=== PATIENT | male | born 1975 ===

== ENCOUNTER 2017-08-25 18:22 | Observation (INO) ==
[2017-08-25] MEDS ORDERED: MAGNESIUM OXIDE 400 MG TABLET PO ONE (22:13)
[2017-08-25] MEDS ORDERED: DEXTROSE 50% 25 GM/50 ML VIAL IV PRN (22:13)
[2017-08-25] MEDS ORDERED: GLUCAGON 1 MG VIAL IM PRN (22:13)
[2017-08-25] MEDS ORDERED: ONDANSETRON 4 MG/2 ML VIAL IV PRN (22:13)
[2017-08-25 22:28] LABS: CKMB % 1.4 %
[2017-08-25 22:29] LABS: Troponin I Only 0.072 NG/ML (0.00-0.045)
[2017-08-25] MEDS: GABAPENTIN 400 MG CAPSULE PO SCH (22:50)
[2017-08-25] MEDS: hydrALAZINE 25 MG TABLET PO SCH (22:50)
[2017-08-25] MEDS: DOCUSATE SODIUM 100 MG CAPSULE PO SCH (22:50)
[2017-08-25] MEDS: ISOSORBIDE DINITRATE 20 MG TABLET PO SCH (22:51)
[2017-08-25] MEDS: ATORVASTATIN 80 MG TABLET PO SCH (22:51)
[2017-08-25 22:52] LABS: Basophils % 0.5 % (0.0-0.8); Eosinophils # 0.2 10*3/uL (0.0-0.87); Eosinophils % 3.8 % (0.00-10.9); Hematocrit 31.3 VOL% (42.0-52.0); Hemoglobin 10.1 GM/DL (14.0-18.0); Immature Granulocytes % 0.3 %; Immature Granulocytes Absolute 0.02 #; Lymphocytes # 1.7 10*3/uL (1.4-4.0); Mean Corpuscular HGB Conc 32.3 GM/DL (32-36); Mean Corpuscular Hemoglobin 27 PG (27-34); Mean Corpuscular Volume 83.5 FL (87-102); Mean Platelet Volume 10.5 FL (9.6-12.0); Monocytes # 0.6 10*3/uL (0.11-0.8); Neutrophils # 3.2 10*3/uL (1.4-7.4); Neutrophils % 55.4 % (38.7-73.9); Platelet Count 225 T/CUMM (130-400); Red Blood Count 3.75 MC/CUMM (3.8-5.5); Red Cell Distribution Width 13.7 % (9.3-17.3); White Blood Count 5.7 T/CUMM (4-12)
[2017-08-25] MEDS: CARVEDILOL 6.25 MG TABLET PO SCH (22:54)
[2017-08-25] MEDS: INSULIN LISPRO 100 UNIT/ML SUBCUT SCH (22:55)
[2017-08-25 23:17] LABS: Magnesium 1.6 MG/DL (1.8-2.4); Risk Ratio 1.87
[2017-08-25 23:19] LABS: Alanine Aminotransferase 24 U/L (16-61); Albumin 2.3 G/DL (3.4-5.0); Alkaline Phosphatase 103 U/L (45-117); Aspartate Amino Transferase 28 U/L (0-37); Bilirubin,Total < 0.39 MG/DL (0.2-1.0); Blood Urea Nitrogen 43 MG/DL (7-18); Glucose 127 MG/DL (74-106); Osmolality,Calculated 287.7 MOS/KG (273-304); Potassium 4.5 MMOL/L (3.5-5.1); Sodium 138 MMOL/L (136-145); Total Protein 4.8 G/DL (6.4-8.3)
[2017-08-26] MEDS: CARVEDILOL 6.25 MG TABLET PO SCH ×2 (08:57→16:06)
[2017-08-26] MEDS: INSULIN LISPRO 100 UNIT/ML SUBCUT SCH ×4 (08:57→20:52)
[2017-08-26] MEDS: CLOPIDOGREL 75 MG TABLET PO SCH (08:57)
[2017-08-26] MEDS: PANTOPRAZOLE 40 MG TABLET PO SCH (08:57)
[2017-08-26] MEDS: DOCUSATE SODIUM 100 MG CAPSULE PO SCH ×2 (08:57→20:52)
[2017-08-26] MEDS: GABAPENTIN 400 MG CAPSULE PO SCH (08:57)
[2017-08-26] MEDS: ISOSORBIDE DINITRATE 20 MG TABLET PO SCH ×3 (08:57→20:55)
[2017-08-26] MEDS: hydrALAZINE 25 MG TABLET PO SCH ×3 (08:57→20:51)
[2017-08-26] MEDS: ENOXAPARIN 30 MG/0.3 ML SYRINGE SUBCUT SCH (08:58)
[2017-08-26] MEDS: MORPHINE 2 MG/1 ML SYRINGE IV PRN ×4 (08:58→20:55)
[2017-08-26] MEDS: ASPIRIN EC 81 MG TABLET PO SCH (08:58)
[2017-08-26 16:06] LABS: Protein/Creatinine Ratio,Urine 5.1 RATIO
[2017-08-26 18:14] LABS: CKMB % 1.7 %
[2017-08-26 18:15] LABS: Troponin I Only 0.062 NG/ML (0.00-0.045)
[2017-08-26] MEDS: ATORVASTATIN 80 MG TABLET PO SCH (20:51)
[2017-08-26] MEDS: GABAPENTIN 600 MG TABLET PO SCH (20:55)
[2017-08-27] MEDS: MORPHINE 2 MG/1 ML SYRINGE IV PRN ×4 (01:31→20:33)
[2017-08-27 06:16] LABS: Basophils % 0.5 % (0.0-0.8); Eosinophils # 0.2 10*3/uL (0.0-0.87); Eosinophils % 1.9 % (0.00-10.9); Hematocrit 32.4 VOL% (42.0-52.0); Hemoglobin 10.2 GM/DL (14.0-18.0); Immature Granulocytes % 0.4 %; Immature Granulocytes Absolute 0.03 #; Lymphocytes # 1.2 10*3/uL (1.4-4.0); Lymphocytes % 14.8 % (21.2-54.2); Mean Corpuscular HGB Conc 31.5 GM/DL (32-36); Mean Corpuscular Hemoglobin 27 PG (27-34); Mean Corpuscular Volume 84.2 FL (87-102); Monocytes # 0.5 10*3/uL (0.11-0.8); Monocytes % 5.4 % (1.7-12.7); Neutrophils # 6.5 10*3/uL (1.4-7.4); Platelet Count 245 T/CUMM (130-400); Red Blood Count 3.85 MC/CUMM (3.8-5.5); Red Cell Distribution Width 13.5 % (9.3-17.3); White Blood Count 8.4 T/CUMM (4-12)
[2017-08-27 06:46] LABS: CKMB % 2.1 %; Osmolality,Calculated 291.7 MOS/KG (273-304); Potassium 4.6 MMOL/L (3.5-5.1)
[2017-08-27 06:50] LABS: Troponin I Only 0.084 NG/ML (0.00-0.045)
[2017-08-27] MEDS: INSULIN LISPRO 100 UNIT/ML SUBCUT SCH ×4 (08:56→21:36)
[2017-08-27] MEDS: hydrALAZINE 25 MG TABLET PO SCH ×2 (08:57→15:06)
[2017-08-27] MEDS: ISOSORBIDE DINITRATE 20 MG TABLET PO SCH ×3 (08:57→20:33)
[2017-08-27] MEDS: PANTOPRAZOLE 40 MG TABLET PO SCH (08:57)
[2017-08-27] MEDS: DOCUSATE SODIUM 100 MG CAPSULE PO SCH ×2 (08:57→20:33)
[2017-08-27] MEDS: ENOXAPARIN 30 MG/0.3 ML SYRINGE SUBCUT SCH (08:57)
[2017-08-27] MEDS: ASPIRIN EC 81 MG TABLET PO SCH (08:57)
[2017-08-27] MEDS: CARVEDILOL 6.25 MG TABLET PO SCH ×2 (08:57→17:23)
[2017-08-27] MEDS: CLOPIDOGREL 75 MG TABLET PO SCH (08:57)
[2017-08-27] MEDS ORDERED: FUROSEMIDE 20 MG/2 ML VIAL IV SCH (15:00)
[2017-08-27] MEDS ORDERED: MAGNESIUM SULF RIDER 2 GM in PREMIX 1 EACH IV ONE (19:44)
[2017-08-27] MEDS: ATORVASTATIN 80 MG TABLET PO SCH (20:32)
[2017-08-27] MEDS: GABAPENTIN 600 MG TABLET PO SCH (20:32)
[2017-08-27] MEDS: FUROSEMIDE 20 MG/2 ML VIAL IV SCH (20:32)
[2017-08-28] MEDS: CARVEDILOL 6.25 MG TABLET PO SCH ×2 (08:23→16:22)
[2017-08-28] MEDS: ISOSORBIDE DINITRATE 20 MG TABLET PO SCH ×3 (08:23→20:57)
[2017-08-28] MEDS: ENOXAPARIN 30 MG/0.3 ML SYRINGE SUBCUT SCH (08:23)
[2017-08-28] MEDS: ASPIRIN EC 81 MG TABLET PO SCH (08:23)
[2017-08-28] MEDS: INSULIN LISPRO 100 UNIT/ML SUBCUT SCH ×4 (08:23→20:23)
[2017-08-28] MEDS: DOCUSATE SODIUM 100 MG CAPSULE PO SCH ×2 (08:23→20:57)
[2017-08-28] MEDS: PANTOPRAZOLE 40 MG TABLET PO SCH (08:23)
[2017-08-28] MEDS: MAGNESIUM CHLORIDE 64 MG TABLET PO SCH ×2 (08:23→20:57)
[2017-08-28] MEDS: FUROSEMIDE 20 MG/2 ML VIAL IV SCH (08:23)
[2017-08-28] MEDS: CLOPIDOGREL 75 MG TABLET PO SCH (08:24)
[2017-08-28] MEDS: MORPHINE 2 MG/1 ML SYRINGE IV PRN ×2 (09:46→20:59)
[2017-08-28 14:02] LABS: % Iron Saturation 10.7 % (18-50); Ferritin 6.8 ng/ml (26-388)
[2017-08-28] MEDS: FUROSEMIDE 80 MG TABLET PO SCH (15:02)
[2017-08-28] MEDS: GABAPENTIN 600 MG TABLET PO SCH (20:57)
[2017-08-28] MEDS: ATORVASTATIN 80 MG TABLET PO SCH (20:57)
[2017-08-29 06:33] LABS: Calcium 7.6 MG/DL (8.5-10.1); Osmolality,Calculated 291.7 MOS/KG (273-304); Potassium 4.3 MMOL/L (3.5-5.1)
[2017-08-29] MEDS: INSULIN LISPRO 100 UNIT/ML SUBCUT SCH ×4 (08:16→21:14)
[2017-08-29] MEDS: ISOSORBIDE DINITRATE 20 MG TABLET PO SCH ×3 (08:20→20:58)
[2017-08-29] MEDS: MAGNESIUM CHLORIDE 64 MG TABLET PO SCH ×2 (08:20→20:58)
[2017-08-29] MEDS: FUROSEMIDE 80 MG TABLET PO SCH ×2 (08:21→17:11)
[2017-08-29] MEDS: CLOPIDOGREL 75 MG TABLET PO SCH (08:21)
[2017-08-29] MEDS: CARVEDILOL 6.25 MG TABLET PO SCH ×2 (08:22→17:11)
[2017-08-29] MEDS: PANTOPRAZOLE 40 MG TABLET PO SCH (08:22)
[2017-08-29] MEDS: ASPIRIN EC 81 MG TABLET PO SCH (08:23)
[2017-08-29] MEDS: DOCUSATE SODIUM 100 MG CAPSULE PO SCH ×2 (08:24→20:58)
[2017-08-29] MEDS: ENOXAPARIN 30 MG/0.3 ML SYRINGE SUBCUT SCH (08:25)
[2017-08-29] MEDS: ACETAMINOPHEN 325 MG TABLET PO PRN (10:05)
[2017-08-29] MEDS: IRON SUCROSE 200 MG in SODIUM CHLORIDE 0.9% 100 ML IV SCH (10:06)
[2017-08-29] MEDS: MORPHINE 2 MG/1 ML SYRINGE IV PRN ×2 (12:55→21:06)
[2017-08-29] MEDS: ATORVASTATIN 80 MG TABLET PO SCH (20:58)
[2017-08-29] MEDS: GABAPENTIN 600 MG TABLET PO SCH (20:58)
[2017-08-30] MEDS: INSULIN LISPRO 100 UNIT/ML SUBCUT SCH ×2 (08:40→12:23)
[2017-08-30] MEDS: CLOPIDOGREL 75 MG TABLET PO SCH (08:41)
[2017-08-30] MEDS: MAGNESIUM CHLORIDE 64 MG TABLET PO SCH (08:41)
[2017-08-30] MEDS: ENOXAPARIN 30 MG/0.3 ML SYRINGE SUBCUT SCH (08:41)
[2017-08-30] MEDS: ISOSORBIDE DINITRATE 20 MG TABLET PO SCH ×2 (08:41→17:37)
[2017-08-30] MEDS: CARVEDILOL 6.25 MG TABLET PO SCH ×2 (08:42→17:38)
[2017-08-30] MEDS: ASPIRIN EC 81 MG TABLET PO SCH (08:42)
[2017-08-30] MEDS: DOCUSATE SODIUM 100 MG CAPSULE PO SCH (08:42)
[2017-08-30] MEDS: IRON SUCROSE 200 MG in SODIUM CHLORIDE 0.9% 100 ML IV SCH (08:42)
[2017-08-30] MEDS: FUROSEMIDE 80 MG TABLET PO SCH ×2 (08:42→17:37)
[2017-08-30] MEDS: PANTOPRAZOLE 40 MG TABLET PO SCH (08:42)
[2017-08-30] MEDS: MORPHINE 2 MG/1 ML SYRINGE IV PRN (12:23)
[2017-08-30 16:26] VITALS: BP 156/94
[2017-08-30] MEDS: ACETAMINOPHEN 325 MG TABLET PO PRN (17:44)
== END 2017-08-30 19:25 | disposition home or self-care (01) ==
LOC: EDBD → EDUNIT# → N.ED 18:22 → N.EDINP 18:22 → SUATTDRO 19:51 → N.5E 20:19
PROVIDERS: ADMIT Internal Medicine; ATTEND Hospitalist

== ENCOUNTER 2017-09-05 20:01 | Inpatient (IN) ==
[2017-09-05] MEDS ORDERED: GLUCAGON 1 MG VIAL IM PRN (22:40)
[2017-09-05] MEDS ORDERED: ACETAMINOPHEN 325 MG TABLET PO PRN (22:40)
[2017-09-05] MEDS ORDERED: ONDANSETRON 4 MG/2 ML VIAL IV PRN (22:40)
[2017-09-05] MEDS ORDERED: MAGNESIUM SULF RIDER 4 GM in PREMIX 1 EACH IV PRN (22:40)
[2017-09-05] MEDS ORDERED: DEXTROSE 50% 25 GM/50 ML VIAL IV PRN (22:40)
[2017-09-05] MEDS ORDERED: MAGNESIUM SULF RIDER 2 GM in PREMIX 1 EACH IV PRN (22:40)
[2017-09-06] MEDS: INSULIN REGULAR 100 UNIT/ML SUBCUT SCH ×5 (01:04→20:22)
[2017-09-06 07:37] LABS: Basophils # 0.1 10*3/uL (0.0-0.2); Basophils % 0.9 % (0.0-0.8); Eosinophils # 0.4 10*3/uL (0.0-0.87); Eosinophils % 5.2 % (0.00-10.9); Hemoglobin 9.5 GM/DL (14.0-18.0); Immature Granulocytes % 0.3 %; Immature Granulocytes Absolute 0.02 #; Lymphocytes # 1.6 10*3/uL (1.4-4.0); Mean Corpuscular HGB Conc 30.6 GM/DL (32-36); Mean Corpuscular Hemoglobin 26 PG (27-34); Mean Corpuscular Volume 85.4 FL (87-102); Monocytes # 0.7 10*3/uL (0.11-0.8); Monocytes % 9.9 % (1.7-12.7); Neutrophils # 4.7 10*3/uL (1.4-7.4); Neutrophils % 62.7 % (38.7-73.9); Platelet Count 232 T/CUMM (130-400); Red Blood Count 3.63 MC/CUMM (3.8-5.5); Red Cell Distribution Width 14.1 % (9.3-17.3); White Blood Count 7.5 T/CUMM (4-12)
[2017-09-06 08:10] LABS: Calcium 7.6 MG/DL (8.5-10.1); Magnesium 1.3 MG/DL (1.8-2.4); Osmolality,Calculated 302.7 MOS/KG (273-304)
[2017-09-06] MEDS ORDERED: PNEUMOCOCCAL VACCINE (23 VALENT) 0.5 ML VIAL IM ONE (09:00)
[2017-09-06] MEDS: ISOSORBIDE DINITRATE 20 MG TABLET PO SCH ×3 (09:07→20:21)
[2017-09-06] MEDS: FUROSEMIDE 40 MG/4 ML VIAL IV SCH ×2 (09:07→15:25)
[2017-09-06] MEDS: CLOPIDOGREL 75 MG TABLET PO SCH (09:07)
[2017-09-06] MEDS: PANTOPRAZOLE 40 MG TABLET PO SCH (09:07)
[2017-09-06] MEDS: ASPIRIN EC 81 MG TABLET PO SCH (09:07)
[2017-09-06] MEDS: ENOXAPARIN 30 MG/0.3 ML SYRINGE SUBCUT SCH (09:12)
[2017-09-06] MEDS: traMADol 50 MG TABLET PO PRN (09:51)
[2017-09-06] MEDS: ATORVASTATIN 40 MG TABLET PO SCH (20:21)
[2017-09-06] MEDS: INSULIN GLARGINE 100 UNIT/ML SUBCUT SCH (20:21)
[2017-09-07] MEDS: traMADol 50 MG TABLET PO PRN ×2 (04:58→17:15)
[2017-09-07 06:56] LABS: Basophils # 0.1 10*3/uL (0.0-0.2); Basophils % 0.8 % (0.0-0.8); Eosinophils # 0.4 10*3/uL (0.0-0.87); Eosinophils % 5.4 % (0.00-10.9); Hemoglobin 9.8 GM/DL (14.0-18.0); Immature Granulocytes % 0.3 %; Immature Granulocytes Absolute 0.02 #; Lymphocytes # 1.5 10*3/uL (1.4-4.0); Lymphocytes % 20.7 % (21.2-54.2); Mean Corpuscular HGB Conc 31.6 GM/DL (32-36); Mean Corpuscular Hemoglobin 26 PG (27-34); Mean Corpuscular Volume 83.6 FL (87-102); Mean Platelet Volume 12.3 FL (9.6-12.0); Monocytes # 0.8 10*3/uL (0.11-0.8); Monocytes % 10.5 % (1.7-12.7); Neutrophils # 4.5 10*3/uL (1.4-7.4); Neutrophils % 62.3 % (38.7-73.9); Platelet Count 258 T/CUMM (130-400); Red Blood Count 3.71 MC/CUMM (3.8-5.5); White Blood Count 7.2 T/CUMM (4-12)
[2017-09-07 07:29] LABS: Calcium 7.8 MG/DL (8.5-10.1); Magnesium 1.5 MG/DL (1.8-2.4); Osmolality,Calculated 297.1 MOS/KG (273-304)
[2017-09-07] MEDS: ASPIRIN EC 81 MG TABLET PO SCH (09:38)
[2017-09-07] MEDS: ENOXAPARIN 30 MG/0.3 ML SYRINGE SUBCUT SCH (09:38)
[2017-09-07] MEDS: CLOPIDOGREL 75 MG TABLET PO SCH (09:38)
[2017-09-07] MEDS: ISOSORBIDE DINITRATE 20 MG TABLET PO SCH ×3 (09:38→21:08)
[2017-09-07] MEDS: FUROSEMIDE 40 MG/4 ML VIAL IV SCH ×2 (09:38→15:43)
[2017-09-07] MEDS: PANTOPRAZOLE 40 MG TABLET PO SCH (09:38)
[2017-09-07] MEDS: INSULIN REGULAR 100 UNIT/ML SUBCUT SCH ×4 (09:47→21:09)
[2017-09-07] MEDS: ATORVASTATIN 40 MG TABLET PO SCH (21:08)
[2017-09-07] MEDS: INSULIN GLARGINE 100 UNIT/ML SUBCUT SCH (21:09)
[2017-09-08 07:14] LABS: Basophils # 0.1 10*3/uL (0.0-0.2); Basophils % 0.8 % (0.0-0.8); Eosinophils # 0.2 10*3/uL (0.0-0.87); Eosinophils % 3.3 % (0.00-10.9); Hematocrit 31.6 VOL% (42.0-52.0); Hemoglobin 9.8 GM/DL (14.0-18.0); Immature Granulocytes % 0.3 %; Immature Granulocytes Absolute 0.02 #; Mean Corpuscular Hemoglobin 26 PG (27-34); Mean Corpuscular Volume 84.7 FL (87-102); Mean Platelet Volume 11.8 FL (9.6-12.0); Monocytes # 0.6 10*3/uL (0.11-0.8); Monocytes % 9.1 % (1.7-12.7); Neutrophils # 4.3 10*3/uL (1.4-7.4); Neutrophils % 69.5 % (38.7-73.9); Platelet Count 254 T/CUMM (130-400); Red Blood Count 3.73 MC/CUMM (3.8-5.5); Red Cell Distribution Width 13.8 % (9.3-17.3); White Blood Count 6.1 T/CUMM (4-12)
[2017-09-08 07:44] LABS: Calcium 8.3 MG/DL (8.5-10.1); Magnesium 1.6 MG/DL (1.8-2.4); Potassium 4.6 MMOL/L (3.5-5.1)
[2017-09-08] MEDS: PANTOPRAZOLE 40 MG TABLET PO SCH (10:03)
[2017-09-08] MEDS: CLOPIDOGREL 75 MG TABLET PO SCH (10:03)
[2017-09-08] MEDS: ENOXAPARIN 30 MG/0.3 ML SYRINGE SUBCUT SCH (10:03)
[2017-09-08] MEDS: ASPIRIN EC 81 MG TABLET PO SCH (10:03)
[2017-09-08] MEDS: ISOSORBIDE DINITRATE 20 MG TABLET PO SCH ×3 (10:03→21:13)
[2017-09-08] MEDS: FUROSEMIDE 40 MG/4 ML VIAL IV SCH (10:04)
[2017-09-08] MEDS: INSULIN REGULAR 100 UNIT/ML SUBCUT SCH ×4 (10:04→21:54)
[2017-09-08] MEDS: FUROSEMIDE 80 MG TABLET PO SCH (15:53)
[2017-09-08] MEDS: ATORVASTATIN 40 MG TABLET PO SCH (21:13)
[2017-09-08] MEDS: INSULIN GLARGINE 100 UNIT/ML SUBCUT SCH (21:54)
[2017-09-09] MEDS: traMADol 50 MG TABLET PO PRN (03:40)
[2017-09-09] MEDS: FUROSEMIDE 80 MG TABLET PO SCH ×2 (09:28→15:48)
[2017-09-09] MEDS: ISOSORBIDE DINITRATE 20 MG TABLET PO SCH ×2 (09:28→14:58)
[2017-09-09] MEDS: PANTOPRAZOLE 40 MG TABLET PO SCH (09:28)
[2017-09-09] MEDS: ASPIRIN EC 81 MG TABLET PO SCH (09:28)
[2017-09-09] MEDS: CLOPIDOGREL 75 MG TABLET PO SCH (09:29)
[2017-09-09] MEDS: ENOXAPARIN 30 MG/0.3 ML SYRINGE SUBCUT SCH (09:29)
[2017-09-09] MEDS: INSULIN REGULAR 100 UNIT/ML SUBCUT SCH ×3 (10:15→15:47)
[2017-09-09 15:31] VITALS: BP 163/103
== END 2017-09-09 17:51 | disposition home or self-care (01) | DRG 291 ==
LOC: N.5E 21:47 → SUATTDRO 21:47
PROVIDERS: ADMIT Internal Medicine; ATTEND Internal Medicine

== ENCOUNTER 2018-02-08 17:26 | Inpatient (IN) ==
[2018-02-08] MEDS ORDERED: DEXTROSE 50% 25 GM/50 ML VIAL IV PRN (18:04)
[2018-02-08] MEDS ORDERED: ONDANSETRON 4 MG/2 ML VIAL IV PRN (18:04)
[2018-02-08] MEDS ORDERED: GLUCAGON 1 MG VIAL IM PRN (18:04)
[2018-02-08 18:22] LABS: Troponin I Only 0.088 NG/ML (0.00-0.045)
[2018-02-08 19:49] LABS: Calcium 6.9 MG/DL (8.5-10.1); Osmolality,Calculated 274.1 MOS/KG (273-304); Potassium 2.7 MMOL/L (3.5-5.1)
[2018-02-08] MEDS: INSULIN REGULAR 100 UNIT/ML SUBCUT SCH (20:59)
[2018-02-09] MEDS: ACETAMINOPHEN 325 MG TABLET PO PRN (01:51)
[2018-02-09] MEDS: ZALEPLON 5 MG CAPSULE PO PRN (01:53)
[2018-02-09 02:09] LABS: Basophils % 0.5 % (0.0-0.8); Eosinophils # 0.1 10*3/uL (0.0-0.87); Eosinophils % 1.3 % (0.00-10.9); Hematocrit 28.5 VOL% (42.0-52.0); Hemoglobin 10.4 GM/DL (14.0-18.0); Immature Granulocytes % 0.2 %; Immature Granulocytes Absolute 0.01 #; Lymphocytes # 1.8 10*3/uL (1.4-4.0); Lymphocytes % 29.7 % (21.2-54.2); Mean Corpuscular HGB Conc 36.5 GM/DL (32-36); Mean Corpuscular Hemoglobin 29 PG (27-34); Mean Corpuscular Volume 80.3 FL (87-102); Mean Platelet Volume 10.8 FL (9.6-12.0); Monocytes # 0.7 10*3/uL (0.11-0.8); Monocytes % 12.2 % (1.7-12.7); Neutrophils # 3.4 10*3/uL (1.4-7.4); Neutrophils % 56.1 % (38.7-73.9); Platelet Count 227 T/CUMM (130-400); Red Blood Count 3.55 MC/CUMM (3.8-5.5); Red Cell Distribution Width 14.4 % (9.3-17.3)
[2018-02-09 02:37] LABS: Alanine Aminotransferase 17 U/L (16-61); Albumin 2.1 G/DL (3.4-5.0); Alkaline Phosphatase 118 U/L (45-117); Aspartate Amino Transferase 24 U/L (0-37); Bilirubin,Total < 0.39 MG/DL (0.2-1.0); Blood Urea Nitrogen 48 MG/DL (7-18); Calcium 6.4 MG/DL (8.5-10.1); Glucose 217 MG/DL (74-106); Osmolality,Calculated 277.9 MOS/KG (273-304); Potassium 2.7 MMOL/L (3.5-5.1); Sodium 129 MMOL/L (136-145); Total Protein 4.4 G/DL (6.4-8.3)
[2018-02-09] MEDS ORDERED: MAGNESIUM SULF RIDER 1 GM in PREMIX 1 EACH IV ONE (06:30)
[2018-02-09] MEDS ORDERED: POTASSIUM CHLORIDE 20 MEQ TABLET PO ONE (06:30)
[2018-02-09] MEDS: PANTOPRAZOLE 40 MG TABLET PO SCH (08:52)
[2018-02-09] MEDS: INSULIN REGULAR 100 UNIT/ML SUBCUT SCH ×4 (08:57→22:10)
[2018-02-09] MEDS ORDERED: MAGNESIUM SULF RIDER 4 GM in PREMIX 1 EACH IV PRN (09:36)
[2018-02-09] MEDS ORDERED: MAGNESIUM SULF RIDER 2 GM in PREMIX 1 EACH IV PRN (09:36)
[2018-02-09 10:58] LABS: PT Patient Result 10.1 SECS
[2018-02-09] MEDS ORDERED: PANTOPRAZOLE 40 MG TABLET PO SCH (11:00)
[2018-02-09 11:21] LABS: Hepatitis A Ab IgM Result Negative (Negative); Hepatitis B Core IgM Quant 0.18 Index; Hepatitis B Core IgM Result Negative (Negative); Hepatitis B Surface Ag Quant < 0.10 Index; Hepatitis B Surface Ag Result Negative (Negative); Hepatitis C Virus Ab Quant 0.05 Index; Hepatitis C Virus Ab Result Negative (Negative)
[2018-02-09] MEDS: POTASSIUM CHLORIDE RIDER 10 MEQ in PREMIX 1 EACH IV PRN ×5 (11:31→18:51)
[2018-02-09] MEDS: ASPIRIN EC 81 MG TABLET PO SCH (11:33)
[2018-02-09] MEDS: CARVEDILOL 12.5 MG TABLET PO SCH ×2 (11:33→16:12)
[2018-02-09 15:22] LABS: Basophils # 0.1 10*3/uL (0.0-0.2); Basophils % 0.6 % (0.0-0.8); Eosinophils # 0.1 10*3/uL (0.0-0.87); Eosinophils % 1.1 % (0.00-10.9); Hematocrit 31.3 VOL% (42.0-52.0); Hemoglobin 10.8 GM/DL (14.0-18.0); Immature Granulocytes % 0.4 %; Immature Granulocytes Absolute 0.03 #; Lymphocytes % 23.9 % (21.2-54.2); Mean Corpuscular HGB Conc 34.5 GM/DL (32-36); Mean Corpuscular Hemoglobin 29 PG (27-34); Mean Corpuscular Volume 82.8 FL (87-102); Mean Platelet Volume 10.9 FL (9.6-12.0); Monocytes # 0.9 10*3/uL (0.11-0.8); Monocytes % 10.7 % (1.7-12.7); Neutrophils # 5.2 10*3/uL (1.4-7.4); Neutrophils % 63.3 % (38.7-73.9); Platelet Count 257 T/CUMM (130-400); Red Blood Count 3.78 MC/CUMM (3.8-5.5); Red Cell Distribution Width 14.2 % (9.3-17.3); White Blood Count 8.2 T/CUMM (4-12)
[2018-02-09] MEDS ORDERED: FUROSEMIDE 80 MG TABLET PO SCH (16:00)
[2018-02-09] MEDS: ISOSORBIDE DINITRATE 20 MG TABLET PO SCH ×2 (16:11→22:11)
[2018-02-09] MEDS: ATORVASTATIN 40 MG TABLET PO SCH (22:11)
[2018-02-10 06:30] LABS: Basophils % 0.4 % (0.0-0.8); Eosinophils # 0.1 10*3/uL (0.0-0.87); Eosinophils % 1.3 % (0.00-10.9); Hematocrit 29.5 VOL% (42.0-52.0); Hemoglobin 10.1 GM/DL (14.0-18.0); Immature Granulocytes % 0.4 %; Immature Granulocytes Absolute 0.03 #; Lymphocytes # 1.1 10*3/uL (1.4-4.0); Lymphocytes % 16.6 % (21.2-54.2); Mean Corpuscular HGB Conc 34.2 GM/DL (32-36); Mean Corpuscular Hemoglobin 29 PG (27-34); Mean Corpuscular Volume 83.3 FL (87-102); Mean Platelet Volume 11.1 FL (9.6-12.0); Monocytes # 0.6 10*3/uL (0.11-0.8); Monocytes % 9.3 % (1.7-12.7); Neutrophils # 4.9 10*3/uL (1.4-7.4); Platelet Count 244 T/CUMM (130-400); Red Blood Count 3.54 MC/CUMM (3.8-5.5); Red Cell Distribution Width 14.3 % (9.3-17.3); White Blood Count 6.8 T/CUMM (4-12)
[2018-02-10 07:07] LABS: Calcium 7.2 MG/DL (8.5-10.1); Osmolality,Calculated 280.5 MOS/KG (273-304); Potassium 3.5 MMOL/L (3.5-5.1)
[2018-02-10 07:09] LABS: Albumin 2.2 G/DL (3.4-5.0); Bilirubin,Total 0.7 MG/DL (0.2-1.0); Calcium 7.3 MG/DL (8.5-10.1); Osmolality,Calculated 278.5 MOS/KG (273-304); Potassium 3.2 MMOL/L (3.5-5.1); Total Protein 4.4 G/DL (6.4-8.3)
[2018-02-10] MEDS: CARVEDILOL 12.5 MG TABLET PO SCH ×2 (08:37→16:50)
[2018-02-10] MEDS: ASPIRIN EC 81 MG TABLET PO SCH (08:37)
[2018-02-10] MEDS: ISOSORBIDE DINITRATE 20 MG TABLET PO SCH ×3 (08:37→22:00)
[2018-02-10] MEDS: PANTOPRAZOLE 40 MG TABLET PO SCH (08:37)
[2018-02-10] MEDS: INSULIN REGULAR 100 UNIT/ML SUBCUT SCH ×4 (08:38→21:59)
[2018-02-10] MEDS ORDERED: metOLazone 5 MG TABLET PO SCH (09:00)
[2018-02-10] MEDS: ACETAMINOPHEN 325 MG TABLET PO PRN (18:27)
[2018-02-10] MEDS ORDERED: INSULIN GLARGINE 100 UNIT/ML SUBCUT SCH (21:00)
[2018-02-10] MEDS: ATORVASTATIN 40 MG TABLET PO SCH (22:00)
[2018-02-10] MEDS: ZALEPLON 5 MG CAPSULE PO PRN (22:04)
[2018-02-11 06:12] LABS: Calcium 7.3 MG/DL (8.5-10.1); Osmolality,Calculated 273.5 MOS/KG (273-304); Potassium 3.2 MMOL/L (3.5-5.1)
[2018-02-11] MEDS: CARVEDILOL 12.5 MG TABLET PO SCH (10:25)
[2018-02-11] MEDS: ASPIRIN EC 81 MG TABLET PO SCH (10:25)
[2018-02-11] MEDS: INSULIN REGULAR 100 UNIT/ML SUBCUT SCH ×2 (10:25→12:25)
[2018-02-11] MEDS: PANTOPRAZOLE 40 MG TABLET PO SCH (10:26)
[2018-02-11] MEDS: ISOSORBIDE DINITRATE 20 MG TABLET PO SCH (10:26)
[2018-02-11 11:35] VITALS: BP 132/68
== END 2018-02-11 13:45 | disposition home or self-care (01) | DRG 194 ==
LOC: N.EDINP 17:26 → N.ED 17:26 → N.2E 19:23
PROVIDERS: ADMIT Internal Medicine; ATTEND Internal Medicine

== ENCOUNTER 2018-04-19 19:45 | Inpatient (IN) ==
[2018-04-19] MEDS ORDERED: GLUCAGON 1 MG VIAL IM PRN (22:00)
[2018-04-19] MEDS ORDERED: ACETAMINOPHEN 325 MG TABLET PO PRN (22:00)
[2018-04-19] MEDS ORDERED: DEXTROSE 50% 25 GM/50 ML VIAL IV PRN (22:00)
[2018-04-19] MEDS ORDERED: ONDANSETRON 4 MG/2 ML VIAL IV PRN (22:00)
[2018-04-19] MEDS ORDERED: BUTALBITAL/ACETAMIN/CAFFEINE 50-325-40 MG TABLET PO PRN (22:50)
[2018-04-19 22:55] LABS: Basophils # 0.1 10*3/uL (0.0-0.2); Eosinophils # 0.3 10*3/uL (0.0-0.87); Eosinophils % 4.3 % (0.00-10.9); Hematocrit 32.4 VOL% (42.0-52.0); Hemoglobin 11.3 GM/DL (14.0-18.0); Immature Granulocytes % 0.3 %; Immature Granulocytes Absolute 0.02 #; Lymphocytes # 1.9 10*3/uL (1.4-4.0); Lymphocytes % 32.1 % (21.2-54.2); Mean Corpuscular HGB Conc 34.9 GM/DL (32-36); Mean Corpuscular Hemoglobin 30 PG (27-34); Mean Corpuscular Volume 84.8 FL (87-102); Mean Platelet Volume 11.2 FL (9.6-12.0); Monocytes # 0.5 10*3/uL (0.11-0.8); Neutrophils # 3.1 10*3/uL (1.4-7.4); Neutrophils % 53.3 % (38.7-73.9); Platelet Count 214 T/CUMM (130-400); Red Blood Count 3.82 MC/CUMM (3.8-5.5); Red Cell Distribution Width 13.4 % (9.3-17.3); White Blood Count 5.8 T/CUMM (4-12)
[2018-04-19 23:20] LABS: Calcium 7.8 MG/DL (8.5-10.1); Osmolality,Calculated 302.5 MOS/KG (273-304); Potassium 3.7 MMOL/L (3.5-5.1)
[2018-04-20 05:44] LABS: Basophils # 0.1 10*3/uL (0.0-0.2); Basophils % 0.9 % (0.0-0.8); Eosinophils # 0.3 10*3/uL (0.0-0.87); Eosinophils % 4.9 % (0.00-10.9); Hematocrit 32.2 VOL% (42.0-52.0); Hemoglobin 10.9 GM/DL (14.0-18.0); Immature Granulocytes % 0.5 %; Immature Granulocytes Absolute 0.03 #; Lymphocytes # 2.1 10*3/uL (1.4-4.0); Lymphocytes % 35.7 % (21.2-54.2); Mean Corpuscular HGB Conc 33.9 GM/DL (32-36); Mean Corpuscular Hemoglobin 29 PG (27-34); Mean Corpuscular Volume 85.9 FL (87-102); Mean Platelet Volume 11.4 FL (9.6-12.0); Monocytes # 0.5 10*3/uL (0.11-0.8); Monocytes % 8.3 % (1.7-12.7); Neutrophils # 2.9 10*3/uL (1.4-7.4); Neutrophils % 49.7 % (38.7-73.9); Platelet Count 199 T/CUMM (130-400); Red Blood Count 3.75 MC/CUMM (3.8-5.5); Red Cell Distribution Width 13.2 % (9.3-17.3); White Blood Count 5.8 T/CUMM (4-12)
[2018-04-20 06:14] LABS: Calcium 7.6 MG/DL (8.5-10.1); Osmolality,Calculated 310.1 MOS/KG (273-304); Potassium 3.3 MMOL/L (3.5-5.1)
[2018-04-20 13:40] LABS: Hepatitis A Ab IgM Quant 0.13 Index; Hepatitis A Ab IgM Result Negative (Negative); Hepatitis B Core IgM Quant 0.09 Index; Hepatitis B Core IgM Result Negative (Negative); Hepatitis B Surface Ag Quant < 0.10 Index; Hepatitis B Surface Ag Result Negative (Negative); Hepatitis C Virus Ab Quant 0.05 Index; Hepatitis C Virus Ab Result Negative (Negative)
[2018-04-20] MEDS: INSULIN LISPRO 100 UNIT/ML SUBCUT SCH ×4 (14:04→21:44)
[2018-04-20 20:36] LABS: Calcium 7.8 MG/DL (8.5-10.1); Osmolality,Calculated 294.5 MOS/KG (273-304); Potassium 3.5 MMOL/L (3.5-5.1)
[2018-04-20] MEDS ORDERED: ATORVASTATIN 40 MG TABLET PO SCH (21:30)
[2018-04-20] MEDS ORDERED: INSULIN GLARGINE 100 UNIT/ML SUBCUT SCH (21:30)
[2018-04-20] MEDS: ISOSORBIDE DINITRATE 20 MG TABLET PO SCH (21:44)
[2018-04-21 06:24] LABS: Calcium 7.8 MG/DL (8.5-10.1); Osmolality,Calculated 292.4 MOS/KG (273-304); Potassium 3.2 MMOL/L (3.5-5.1)
[2018-04-21] MEDS ORDERED: FUROSEMIDE 80 MG TABLET PO SCH (08:00)
[2018-04-21] MEDS ORDERED: ASPIRIN EC 81 MG TABLET PO SCH (09:00)
[2018-04-21] MEDS ORDERED: GABAPENTIN 400 MG CAPSULE PO SCH (09:00)
[2018-04-21] MEDS: ISOSORBIDE DINITRATE 20 MG TABLET PO SCH (10:13)
[2018-04-21] MEDS: INSULIN LISPRO 100 UNIT/ML SUBCUT SCH ×2 (10:13→12:37)
[2018-04-21 12:03] VITALS: BP 138/81
== END 2018-04-21 12:38 | disposition home or self-care (01) | DRG 640 ==
LOC: N.TELES 21:14 → SUATTDRO 21:14
PROVIDERS: ADMIT Internal Medicine; ATTEND Internal Medicine

== ENCOUNTER 2018-12-11 16:39 | Observation (INO) ==
[2018-12-11] MEDS ORDERED: ONDANSETRON 4 MG/2 ML VIAL IV PRN (21:29)
[2018-12-11] MEDS ORDERED: ACETAMINOPHEN 325 MG TABLET PO PRN (21:29)
[2018-12-11] MEDS ORDERED: GLUCAGON 1 MG VIAL IM PRN (21:38)
[2018-12-11] MEDS ORDERED: DEXTROSE 50% 25 GM/50 ML VIAL IV PRN (21:38)
[2018-12-11] MEDS ORDERED: NITROGLYCERIN SL 0.4 MG TABLET SL PRN (21:58)
[2018-12-11] MEDS ORDERED: MORPHINE 4 MG/1 ML VIAL IV PRN (21:58)
[2018-12-11] MEDS ORDERED: cloNIDine 0.1 MG TABLET PO PRN (23:38)
[2018-12-12] MEDS: CARVEDILOL 6.25 MG TABLET PO SCH ×3 (00:17→16:17)
[2018-12-12] MEDS: GABAPENTIN 400 MG CAPSULE PO PRN (00:48)
[2018-12-12 06:52] LABS: Basophils % 0.4 % (0.0-0.8); Eosinophils # 0.4 10*3/uL (0.0-0.87); Eosinophils % 7.3 % (0.00-10.9); Hematocrit 26.3 VOL% (42.0-52.0); Hemoglobin 8.4 GM/DL (14.0-18.0); Immature Granulocytes % 0.4 %; Immature Granulocytes Absolute 0.02 #; Lymphocytes # 1.1 10*3/uL (1.4-4.0); Lymphocytes % 20.3 % (21.2-54.2); Mean Corpuscular HGB Conc 31.9 GM/DL (32-36); Mean Corpuscular Hemoglobin 30 PG (27-34); Mean Corpuscular Volume 94.9 FL (87-102); Mean Platelet Volume 12.4 FL (9.6-12.0); Monocytes # 0.6 10*3/uL (0.11-0.8); Monocytes % 11.1 % (1.7-12.7); Neutrophils # 3.2 10*3/uL (1.4-7.4); Neutrophils % 60.5 % (38.7-73.9); Platelet Count 108 T/CUMM (130-400); Red Blood Count 2.77 MC/CUMM (3.8-5.5); Red Cell Distribution Width 13.9 % (9.3-17.3); White Blood Count 5.2 T/CUMM (4-12)
[2018-12-12 07:16] LABS: Calcium 7.5 MG/DL (8.5-10.1); Osmolality,Calculated 276.1 MOS/KG (273-304); Potassium 3.6 MMOL/L (3.5-5.1)
[2018-12-12] MEDS: INSULIN REGULAR 100 UNIT/ML SUBCUT SCH ×4 (07:37→20:57)
[2018-12-12] MEDS: CALCIUM ACETATE 667 MG CAPSULE PO SCH ×3 (08:15→16:17)
[2018-12-12] MEDS: ASPIRIN EC 81 MG TABLET PO SCH (08:16)
[2018-12-12] MEDS: LISINOPRIL 5 MG TABLET PO SCH (08:16)
[2018-12-12] MEDS: FUROSEMIDE 80 MG TABLET PO SCH ×2 (08:16→15:34)
[2018-12-12] MEDS ORDERED: INFLUENZA VIRUS VACCINE 0.5 ML SYRINGE IM ONE (09:00)
[2018-12-13] MEDS: GABAPENTIN 400 MG CAPSULE PO PRN (02:10)
[2018-12-13] MEDS: INSULIN REGULAR 100 UNIT/ML SUBCUT SCH (07:21)
[2018-12-13] MEDS: CALCIUM ACETATE 667 MG CAPSULE PO SCH (08:53)
[2018-12-13] MEDS: LISINOPRIL 5 MG TABLET PO SCH (08:53)
[2018-12-13] MEDS: FUROSEMIDE 80 MG TABLET PO SCH (08:53)
[2018-12-13] MEDS: ASPIRIN EC 81 MG TABLET PO SCH (08:53)
[2018-12-13] MEDS: CARVEDILOL 6.25 MG TABLET PO SCH (08:53)
[2018-12-13 10:12] VITALS: BP 152/94
== END 2018-12-13 11:15 | disposition home or self-care (01) ==
LOC: N.5E → SUATTDRO 19:34
PROVIDERS: ADMIT Internal Medicine; ATTEND Hospitalist

== ENCOUNTER 2019-02-20 15:05 | Observation (INO) ==
[2019-02-20] MEDS ORDERED: ACETAMINOPHEN 325 MG TABLET PO PRN (17:43)
[2019-02-20] MEDS ORDERED: GLUCAGON 1 MG VIAL IM PRN (17:43)
[2019-02-20] MEDS ORDERED: ONDANSETRON 4 MG/2 ML VIAL IV PRN (17:43)
[2019-02-20] MEDS ORDERED: DEXTROSE 50% 25 GM/50 ML VIAL IV PRN (17:43)
[2019-02-20] MEDS ORDERED: SODIUM POLYSTYRENE SULFATE 15 GM/60 ML BOTTLE PO ONE (17:48)
[2019-02-20] MEDS ORDERED: GABAPENTIN 400 MG CAPSULE PO PRN (18:19)
[2019-02-20] MEDS: traMADol 50 MG TABLET PO PRN ×2 (18:48→21:20)
[2019-02-20] MEDS: CARVEDILOL 6.25 MG TABLET PO SCH (21:20)
[2019-02-20] MEDS: ATORVASTATIN 40 MG TABLET PO SCH (21:20)
[2019-02-20] MEDS: ISOSORBIDE DINITRATE 20 MG TABLET PO SCH (21:20)
[2019-02-20] MEDS: INSULIN REGULAR 100 UNIT/ML SUBCUT SCH (21:20)
[2019-02-21 07:16] LABS: Albumin 3.3 G/DL (3.4-5.0); Bilirubin,Total 0.4 MG/DL (0.2-1.0); Calcium 8.1 MG/DL (8.5-10.1); Osmolality,Calculated 276.9 MOS/KG (273-304); Total Protein 6.4 G/DL (6.4-8.3)
[2019-02-21 07:48] LABS: Potassium 6.1 MMOL/L (3.5-5.1)
[2019-02-21] MEDS: ASPIRIN EC 81 MG TABLET PO SCH (08:17)
[2019-02-21] MEDS: FUROSEMIDE 80 MG TABLET PO SCH ×2 (08:17→16:42)
[2019-02-21] MEDS: PANTOPRAZOLE 40 MG TABLET PO SCH (08:17)
[2019-02-21] MEDS: CALCIUM ACETATE 667 MG CAPSULE PO SCH ×3 (08:17→16:46)
[2019-02-21] MEDS: INSULIN REGULAR 100 UNIT/ML SUBCUT SCH ×4 (08:17→20:50)
[2019-02-21] MEDS: ISOSORBIDE DINITRATE 20 MG TABLET PO SCH ×2 (08:17→20:50)
[2019-02-21] MEDS: CARVEDILOL 6.25 MG TABLET PO SCH ×2 (08:17→16:46)
[2019-02-21] MEDS ORDERED: LISINOPRIL 5 MG TABLET PO SCH (09:00)
[2019-02-21 09:44] LABS: Hepatitis A Ab IgM Quant 0.12 Index; Hepatitis A Ab IgM Result Negative (Negative); Hepatitis B Core IgM Quant 0.12 Index; Hepatitis B Core IgM Result Negative (Negative); Hepatitis B Surface Ag Quant < 0.10 Index; Hepatitis B Surface Ag Result Negative (Negative); Hepatitis C Virus Ab Quant 0.02 Index; Hepatitis C Virus Ab Result Negative (Negative)
[2019-02-21] MEDS: traMADol 50 MG TABLET PO PRN (13:50)
[2019-02-21] MEDS: hydrALAZINE 25 MG TABLET PO SCH (20:49)
[2019-02-21] MEDS: ATORVASTATIN 40 MG TABLET PO SCH (20:50)
[2019-02-22 05:13] LABS: Basophils % 0.6 % (0.0-0.8); Eosinophils # 0.2 10*3/uL (0.0-0.87); Eosinophils % 2.7 % (0.00-10.9); Hematocrit 23.9 VOL% (42.0-52.0); Hemoglobin 8.1 GM/DL (14.0-18.0); Immature Granulocytes % 0.3 %; Immature Granulocytes Absolute 0.02 #; Lymphocytes # 0.8 10*3/uL (1.4-4.0); Lymphocytes % 11.8 % (21.2-54.2); Mean Corpuscular HGB Conc 33.9 GM/DL (32-36); Mean Corpuscular Hemoglobin 31 PG (27-34); Mean Corpuscular Volume 92.6 FL (87-102); Mean Platelet Volume 12.3 FL (9.6-12.0); Monocytes # 0.7 10*3/uL (0.11-0.8); Monocytes % 10.9 % (1.7-12.7); Neutrophils # 4.9 10*3/uL (1.4-7.4); Neutrophils % 73.7 % (38.7-73.9); Platelet Count 121 T/CUMM (130-400); Red Blood Count 2.58 MC/CUMM (3.8-5.5); Red Cell Distribution Width 12.8 % (9.3-17.3); White Blood Count 6.6 T/CUMM (4-12)
[2019-02-22 05:28] LABS: Osmolality,Calculated 267.5 MOS/KG (273-304); Potassium 4.4 MMOL/L (3.5-5.1)
[2019-02-22] MEDS: INSULIN REGULAR 100 UNIT/ML SUBCUT SCH ×3 (08:15→15:48)
[2019-02-22] MEDS: hydrALAZINE 25 MG TABLET PO SCH (09:01)
[2019-02-22] MEDS: CARVEDILOL 12.5 MG TABLET PO SCH ×2 (09:01→16:27)
[2019-02-22] MEDS: FUROSEMIDE 80 MG TABLET PO SCH ×2 (09:01→15:43)
[2019-02-22] MEDS: ASPIRIN EC 81 MG TABLET PO SCH (09:01)
[2019-02-22] MEDS: PANTOPRAZOLE 40 MG TABLET PO SCH (09:01)
[2019-02-22] MEDS: CALCIUM ACETATE 667 MG CAPSULE PO SCH ×3 (09:01→16:28)
[2019-02-22] MEDS: ISOSORBIDE DINITRATE 20 MG TABLET PO SCH (09:01)
[2019-02-22 18:01] VITALS: BP 174/97
== END 2019-02-22 18:35 | disposition home or self-care (01) ==
LOC: N.5E → SUATTDRO 17:07 → N.5E 17:24
PROVIDERS: ADMIT Internal Medicine; ATTEND Internal Medicine Nephrology

== ENCOUNTER 2019-04-06 16:44 | Inpatient (IN) ==
[2019-04-06] MEDS ORDERED: CEFEPIME 2,000 MG in SODIUM CHLORIDE 0.9% 100 ML IV STA (18:50)
[2019-04-06] MEDS ORDERED: fentaNYL 100 MCG/2 ML VIAL IV STA (18:54)
[2019-04-06 19:52] LABS: Basophils % 0.1 % (0.0-0.8); Eosinophils % 0.2 % (0.00-10.9); Hemoglobin 8.9 GM/DL (14.0-18.0); Immature Granulocytes % 0.7 %; Lymphocytes # 0.6 10*3/uL (1.4-4.0); Lymphocytes % 3.9 % (21.2-54.2); Mean Corpuscular Volume 90.6 FL (87-102); Mean Platelet Volume 10.7 FL (9.6-12.0); Monocytes % 7.6 % (1.7-12.7); Neutrophils % 87.5 % (38.7-73.9); Platelet Count 176 T/CUMM (130-400); Red Blood Count 2.98 MC/CUMM (3.8-5.5); Red Cell Distribution Width 12.9 % (9.3-17.3); White Blood Count 14.4 T/CUMM (4-12)
[2019-04-06 20:15] LABS: Albumin 2.8 G/DL (3.4-5.0); Bilirubin,Total 0.6 MG/DL (0.2-1.0); Osmolality,Calculated 257.1 MOS/KG (273-304); Total Protein 6.3 G/DL (6.4-8.3)
[2019-04-06] MEDS ORDERED: BISACODYL 5 MG TABLET PO PRN (20:52)
[2019-04-06] MEDS ORDERED: DEXTROSE 50% 25 GM/50 ML SYRINGE IV PRN ×2 (20:52)
[2019-04-06] MEDS ORDERED: GLUCAGON 1 MG VIAL IM PRN ×2 (20:52)
[2019-04-06] MEDS ORDERED: ACETAMINOPHEN 325 MG TABLET PO PRN (20:52)
[2019-04-06] MEDS ORDERED: ONDANSETRON 4 MG/2 ML VIAL IV PRN (20:52)
[2019-04-06] MEDS ORDERED: VANCOMYCIN INJ 1,000 MG in SODIUM CHLORIDE 0.9% 250 ML IV STA (20:56)
[2019-04-06] MEDS ORDERED: PIPERACILLIN/TAZOBACTAM 3,375 MG in SODIUM CHLORIDE 0.9% 100 ML IV STA (20:57)
[2019-04-06] MEDS ORDERED: Ferric Citrate [Auryxia] 420 MG PO SCH (21:00)
[2019-04-06] MEDS ORDERED: SODIUM CHLORIDE 0.9% 1,000 ML IV SCH (21:00)
[2019-04-06] MEDS ORDERED: VANCOMYCIN INJ 1,250 MG in SODIUM CHLORIDE 0.9% 250 ML IV STA (21:35)
[2019-04-06 22:26] LABS: Anisocytosis Slight; Lymphocytes 2 % (20-55); Platelet Estimate Adequate; Segmented Neutrophils 93 % (50-85); Total Cells Counted 100
[2019-04-07] MEDS: traMADol 50 MG TABLET PO PRN ×3 (00:24→22:30)
[2019-04-07] MEDS: INSULIN REGULAR 100 UNIT/ML SUBCUT SCH ×5 (00:29→22:34)
[2019-04-07] MEDS: ENOXAPARIN 30 MG/0.3 ML SYRINGE SUBCUT SCH ×2 (00:29→22:34)
[2019-04-07] MEDS: INSULIN GLARGINE 100 UNIT/ML SUBCUT SCH ×2 (00:29→22:34)
[2019-04-07] MEDS: ATORVASTATIN 40 MG TABLET PO SCH ×2 (00:37→22:30)
[2019-04-07] MEDS: ISOSORBIDE DINITRATE 20 MG TABLET PO SCH ×3 (00:38→22:32)
[2019-04-07] MEDS ORDERED: VANCOMYCIN INJ 1,250 MG in SODIUM CHLORIDE 0.9% 250 ML IV PRN (02:17)
[2019-04-07 05:29] LABS: Basophils # 0.1 10*3/uL (0.0-0.2); Basophils % 0.3 % (0.0-0.8); Eosinophils # 0.1 10*3/uL (0.0-0.87); Eosinophils % 0.5 % (0.00-10.9); Hematocrit 28.9 VOL% (42.0-52.0); Hemoglobin 9.5 GM/DL (14.0-18.0); Immature Granulocytes % 0.8 %; Immature Granulocytes Absolute 0.12 #; Lymphocytes # 1.1 10*3/uL (1.4-4.0); Lymphocytes % 6.8 % (21.2-54.2); Mean Corpuscular HGB Conc 32.9 GM/DL (32-36); Mean Corpuscular Volume 91.2 FL (87-102); Mean Platelet Volume 10.8 FL (9.6-12.0); Monocytes % 8.3 % (1.7-12.7); Neutrophils % 83.3 % (38.7-73.9); Platelet Count 197 T/CUMM (130-400); Red Blood Count 3.17 MC/CUMM (3.8-5.5); Red Cell Distribution Width 12.9 % (9.3-17.3); White Blood Count 15.9 T/CUMM (4-12)
[2019-04-07 05:48] LABS: Calcium 8.2 MG/DL (8.5-10.1); Osmolality,Calculated 257.1 MOS/KG (273-304)
[2019-04-07] MEDS: GABAPENTIN 400 MG CAPSULE PO PRN ×2 (08:29→17:02)
[2019-04-07] MEDS: LISINOPRIL 5 MG TABLET PO SCH (08:30)
[2019-04-07] MEDS: PANTOPRAZOLE 40 MG TABLET PO SCH (08:30)
[2019-04-07] MEDS: CARVEDILOL 12.5 MG TABLET PO SCH ×2 (08:30→17:21)
[2019-04-07] MEDS ORDERED: CLINDAMYCIN INJ 900 MG in PREMIX 1 EACH IV ONE (08:40)
[2019-04-07] MEDS ORDERED: GLUCAGON 1 MG VIAL IM PRN (09:44)
[2019-04-07] MEDS ORDERED: DEXTROSE 50% 25 GM/50 ML VIAL IV PRN (09:44)
[2019-04-07] MEDS: CALCIUM ACETATE 667 MG CAPSULE PO SCH ×3 (10:25→17:21)
[2019-04-07] MEDS: FUROSEMIDE 80 MG TABLET PO SCH ×2 (10:25→17:18)
[2019-04-07] MEDS: PIPERACILLIN/TAZOBACTAM 3,375 MG in SODIUM CHLORIDE 0.9% 100 ML IV SCH (14:00)
[2019-04-07] MEDS ORDERED: VANCOMYCIN INJ 750 MG in SODIUM CHLORIDE 0.9% 250 ML IV PRN (15:30)
[2019-04-07] MEDS ORDERED: VANCOMYCIN INJ 750 MG in SODIUM CHLORIDE 0.9% 250 ML IV ONE (17:00)
[2019-04-08] MEDS: PIPERACILLIN/TAZOBACTAM 3,375 MG in SODIUM CHLORIDE 0.9% 100 ML IV SCH ×2 (02:20→13:55)
[2019-04-08] MEDS: GABAPENTIN 400 MG CAPSULE PO PRN (03:36)
[2019-04-08 06:44] LABS: Basophils % 0.2 % (0.0-0.8); Eosinophils % 0.2 % (0.00-10.9); Hematocrit 25.6 VOL% (42.0-52.0); Hemoglobin 8.5 GM/DL (14.0-18.0); Immature Granulocytes % 0.8 %; Immature Granulocytes Absolute 0.13 #; Lymphocytes # 0.7 10*3/uL (1.4-4.0); Lymphocytes % 4.3 % (21.2-54.2); Mean Corpuscular HGB Conc 33.2 GM/DL (32-36); Mean Corpuscular Volume 91.4 FL (87-102); Mean Platelet Volume 10.9 FL (9.6-12.0); Monocytes % 10.4 % (1.7-12.7); Neutrophils % 84.1 % (38.7-73.9); Platelet Count 187 T/CUMM (130-400); Red Cell Distribution Width 13.2 % (9.3-17.3); White Blood Count 16.6 T/CUMM (4-12)
[2019-04-08 07:05] LABS: Osmolality,Calculated 265.9 MOS/KG (273-304)
[2019-04-08] MEDS: LISINOPRIL 5 MG TABLET PO SCH ×2 (07:16→09:27)
[2019-04-08] MEDS: CARVEDILOL 12.5 MG TABLET PO SCH ×2 (07:16→17:31)
[2019-04-08] MEDS ORDERED: BUPIVACAINE 0.5% 50 ML VIAL ONE (07:30)
[2019-04-08] MEDS ORDERED: LIDOCAINE 1% 20 ML VIAL ONE (07:30)
[2019-04-08] MEDS: INSULIN REGULAR 100 UNIT/ML SUBCUT SCH ×4 (07:44→22:16)
[2019-04-08 08:06] LABS: Eosinophils 1 % (0-10); Hypochromasia Slight; Lymphocytes 5 % (20-55); Microcytosis Slight; Ovalocytes Slight; Polychromasia Slight; Segmented Neutrophils 84 % (50-85); Total Cells Counted 100
[2019-04-08 08:07] LABS: Platelet Estimate Adequate
[2019-04-08] MEDS ORDERED: fentaNYL 100 MCG/2 ML VIAL ONE (08:34)
[2019-04-08] MEDS ORDERED: PROPOFOL 200 MG/20 ML VIAL IV ONE (08:34)
[2019-04-08] MEDS ORDERED: SEVOFLURANE 1 UNIT/15 MINUTE INH ONE (08:34)
[2019-04-08] MEDS ORDERED: PHENYLEPHRINE 1 MG/10 ML SYRINGE IV ONE (08:35)
[2019-04-08] MEDS ORDERED: GLYCOPYRROLATE 0.4 MG/2 ML VIAL ONE (08:35)
[2019-04-08] MEDS ORDERED: MIDAZOLAM 2 MG/2 ML VIAL ONE (08:35)
[2019-04-08] MEDS: ISOSORBIDE DINITRATE 20 MG TABLET PO SCH ×2 (09:26→22:16)
[2019-04-08] MEDS: FUROSEMIDE 80 MG TABLET PO SCH (09:26)
[2019-04-08] MEDS: CALCIUM ACETATE 667 MG CAPSULE PO SCH ×3 (09:26→17:31)
[2019-04-08] MEDS: PANTOPRAZOLE 40 MG TABLET PO SCH (09:27)
[2019-04-08] MEDS: traMADol 50 MG TABLET PO PRN ×2 (13:55→22:15)
[2019-04-08] MEDS: ATORVASTATIN 40 MG TABLET PO SCH (22:15)
[2019-04-08] MEDS: INSULIN GLARGINE 100 UNIT/ML SUBCUT SCH (22:16)
[2019-04-08] MEDS: ENOXAPARIN 30 MG/0.3 ML SYRINGE SUBCUT SCH (22:17)
[2019-04-09] MEDS: PIPERACILLIN/TAZOBACTAM 3,375 MG in SODIUM CHLORIDE 0.9% 100 ML IV SCH ×2 (02:02→13:49)
[2019-04-09 04:49] LABS: Basophils # 0.1 10*3/uL (0.0-0.2); Basophils % 0.4 % (0.0-0.8); Eosinophils # 0.2 10*3/uL (0.0-0.87); Hematocrit 25.9 VOL% (42.0-52.0); Hemoglobin 8.1 GM/DL (14.0-18.0); Immature Granulocytes % 0.9 %; Immature Granulocytes Absolute 0.13 #; Lymphocytes # 1.4 10*3/uL (1.4-4.0); Lymphocytes % 9.4 % (21.2-54.2); Mean Corpuscular HGB Conc 31.3 GM/DL (32-36); Mean Corpuscular Volume 95.2 FL (87-102); Mean Platelet Volume 10.7 FL (9.6-12.0); Monocytes % 9.3 % (1.7-12.7); Platelet Count 175 T/CUMM (130-400); Red Blood Count 2.72 MC/CUMM (3.8-5.5); Red Cell Distribution Width 13.3 % (9.3-17.3); White Blood Count 14.4 T/CUMM (4-12)
[2019-04-09 05:03] LABS: Albumin 2.6 G/DL (3.4-5.0); Calcium 7.9 MG/DL (8.5-10.1); Osmolality,Calculated 258.4 MOS/KG (273-304)
[2019-04-09] MEDS: INSULIN REGULAR 100 UNIT/ML SUBCUT SCH ×4 (07:30→21:40)
[2019-04-09] MEDS: LISINOPRIL 5 MG TABLET PO SCH (08:40)
[2019-04-09] MEDS: PANTOPRAZOLE 40 MG TABLET PO SCH (08:40)
[2019-04-09] MEDS: traMADol 50 MG TABLET PO PRN ×2 (08:40→22:27)
[2019-04-09] MEDS: CALCIUM ACETATE 667 MG CAPSULE PO SCH ×3 (08:40→17:04)
[2019-04-09] MEDS: GABAPENTIN 400 MG CAPSULE PO PRN (08:40)
[2019-04-09] MEDS: ISOSORBIDE DINITRATE 20 MG TABLET PO SCH ×2 (08:41→21:35)
[2019-04-09] MEDS: CARVEDILOL 12.5 MG TABLET PO SCH ×2 (08:41→17:04)
[2019-04-09] MEDS ORDERED: HYDROmorphone 2 MG/1 ML VIAL IV ONE (09:05)
[2019-04-09] MEDS: SODIUM HYPOCHLORITE 0.25% IRRIG 473 ML BOTTLE TOP SCH (09:50)
[2019-04-09] MEDS: HEPARIN 5,000 UNIT/1 ML VIAL SUBCUT SCH ×2 (12:00→17:56)
[2019-04-09] MEDS: INSULIN GLARGINE 100 UNIT/ML SUBCUT SCH (21:35)
[2019-04-09] MEDS: ATORVASTATIN 40 MG TABLET PO SCH (21:35)
[2019-04-10] MEDS: GABAPENTIN 400 MG CAPSULE PO PRN ×2 (01:54→08:21)
[2019-04-10] MEDS: HEPARIN 5,000 UNIT/1 ML VIAL SUBCUT SCH ×3 (01:55→17:51)
[2019-04-10] MEDS: PIPERACILLIN/TAZOBACTAM 3,375 MG in SODIUM CHLORIDE 0.9% 100 ML IV SCH ×2 (01:58→17:52)
[2019-04-10 04:58] LABS: Basophils # 0.1 10*3/uL (0.0-0.2); Basophils % 0.4 % (0.0-0.8); Eosinophils # 0.2 10*3/uL (0.0-0.87); Eosinophils % 1.1 % (0.00-10.9); Hematocrit 24.9 VOL% (42.0-52.0); Hemoglobin 7.9 GM/DL (14.0-18.0); Immature Granulocytes Absolute 0.13 #; Lymphocytes % 7.9 % (21.2-54.2); Mean Corpuscular HGB Conc 31.7 GM/DL (32-36); Mean Platelet Volume 10.6 FL (9.6-12.0); Monocytes % 7.4 % (1.7-12.7); Neutrophils % 82.2 % (38.7-73.9); Platelet Count 194 T/CUMM (130-400); Red Blood Count 2.65 MC/CUMM (3.8-5.5); Red Cell Distribution Width 13.2 % (9.3-17.3); White Blood Count 13.2 T/CUMM (4-12)
[2019-04-10 05:17] LABS: Calcium 8.1 MG/DL (8.5-10.1); Osmolality,Calculated 260.8 MOS/KG (273-304)
[2019-04-10] MEDS: INSULIN REGULAR 100 UNIT/ML SUBCUT SCH ×4 (07:56→20:24)
[2019-04-10] MEDS: CALCIUM ACETATE 667 MG CAPSULE PO SCH ×3 (08:20→16:54)
[2019-04-10] MEDS: LISINOPRIL 5 MG TABLET PO SCH (08:20)
[2019-04-10] MEDS: PANTOPRAZOLE 40 MG TABLET PO SCH (08:21)
[2019-04-10] MEDS: SODIUM HYPOCHLORITE 0.25% IRRIG 473 ML BOTTLE TOP SCH (08:21)
[2019-04-10] MEDS: traMADol 50 MG TABLET PO PRN ×2 (08:21→19:26)
[2019-04-10] MEDS: CARVEDILOL 12.5 MG TABLET PO SCH ×2 (08:21→16:54)
[2019-04-10] MEDS: ISOSORBIDE DINITRATE 20 MG TABLET PO SCH ×2 (08:21→20:56)
[2019-04-10] MEDS ORDERED: VANCOMYCIN INJ 750 MG in SODIUM CHLORIDE 0.9% 250 ML IV ONE (17:00)
[2019-04-10] MEDS: INSULIN GLARGINE 100 UNIT/ML SUBCUT SCH (20:56)
[2019-04-10] MEDS: ATORVASTATIN 40 MG TABLET PO SCH (20:56)
[2019-04-11] MEDS: HEPARIN 5,000 UNIT/1 ML VIAL SUBCUT SCH ×2 (02:04→09:31)
[2019-04-11] MEDS: PIPERACILLIN/TAZOBACTAM 3,375 MG in SODIUM CHLORIDE 0.9% 100 ML IV SCH (02:05)
[2019-04-11 04:43] LABS: Basophils # 0.1 10*3/uL (0.0-0.2); Basophils % 0.4 % (0.0-0.8); Eosinophils # 0.1 10*3/uL (0.0-0.87); Eosinophils % 0.9 % (0.00-10.9); Hematocrit 25.8 VOL% (42.0-52.0); Hemoglobin 8.3 GM/DL (14.0-18.0); Immature Granulocytes % 1.1 %; Immature Granulocytes Absolute 0.13 #; Lymphocytes # 0.8 10*3/uL (1.4-4.0); Mean Corpuscular HGB Conc 32.2 GM/DL (32-36); Mean Corpuscular Volume 94.2 FL (87-102); Mean Platelet Volume 10.6 FL (9.6-12.0); Neutrophils % 82.6 % (38.7-73.9); Platelet Count 211 T/CUMM (130-400); Red Blood Count 2.74 MC/CUMM (3.8-5.5); Red Cell Distribution Width 13.2 % (9.3-17.3)
[2019-04-11 04:48] LABS: Osmolality,Calculated 268.7 MOS/KG (273-304)
[2019-04-11] MEDS: SODIUM HYPOCHLORITE 0.25% IRRIG 473 ML BOTTLE TOP SCH (07:45)
[2019-04-11] MEDS: INSULIN REGULAR 100 UNIT/ML SUBCUT SCH ×2 (08:29→11:54)
[2019-04-11] MEDS: LISINOPRIL 5 MG TABLET PO SCH (09:29)
[2019-04-11] MEDS: ISOSORBIDE DINITRATE 20 MG TABLET PO SCH (09:30)
[2019-04-11] MEDS: PANTOPRAZOLE 40 MG TABLET PO SCH (09:30)
[2019-04-11] MEDS: CARVEDILOL 12.5 MG TABLET PO SCH (09:30)
[2019-04-11] MEDS: traMADol 50 MG TABLET PO PRN (09:30)
[2019-04-11] MEDS: CALCIUM ACETATE 667 MG CAPSULE PO SCH ×2 (09:30→12:08)
[2019-04-11] MEDS: GABAPENTIN 400 MG CAPSULE PO PRN (09:30)
[2019-04-11 11:51] VITALS: BP 154/94
== END 2019-04-11 13:52 | disposition home or self-care (01) | DRG 255 ==
LOC: N.ED 16:44 → SUATTDRO 20:52 → N.EDINP 20:52 → N.5E 22:42
PROVIDERS: ADMIT Internal Medicine; ATTEND Emergency Medicine

== ENCOUNTER 2019-05-12 08:08 | Inpatient (IN) ==
[2019-05-12] MEDS ORDERED: ACETAMINOPHEN 325 MG TABLET PO PRN (14:16)
[2019-05-12] MEDS ORDERED: guaiFENesin/DM ER 600-30 MG TABLET PO PRN (14:16)
[2019-05-12] MEDS ORDERED: ONDANSETRON 4 MG/2 ML VIAL IV PRN (14:16)
[2019-05-12] MEDS ORDERED: diphenhydrAMINE CAP 25 MG CAPSULE PO PRN (14:16)
[2019-05-12] MEDS ORDERED: NICOTINE 21 MG/24 HR PATCH TRANSDERM PRN (14:16)
[2019-05-12] MEDS: PIPERACILLIN/TAZOBACTAM 3,375 MG in SODIUM CHLORIDE 0.9% 100 ML IV SCH (18:26)
[2019-05-12] MEDS: NF- (Ferric Citrate [Auryxia] 420 MG) PO SCH ×2 (18:33→22:39)
[2019-05-12] MEDS: CALCIUM ACETATE 667 MG CAPSULE PO SCH (19:34)
[2019-05-12] MEDS: CARVEDILOL 12.5 MG TABLET PO SCH (19:34)
[2019-05-12] MEDS: ISOSORBIDE DINITRATE 20 MG TABLET PO SCH (20:55)
[2019-05-12] MEDS: INSULIN GLARGINE 100 UNIT/ML SUBCUT SCH (20:55)
[2019-05-12] MEDS: ATORVASTATIN 40 MG TABLET PO SCH (20:55)
[2019-05-13] MEDS: PIPERACILLIN/TAZOBACTAM 3,375 MG in SODIUM CHLORIDE 0.9% 100 ML IV SCH ×4 (00:18→23:28)
[2019-05-13] MEDS: traMADol 50 MG TABLET PO PRN ×2 (03:53→20:49)
[2019-05-13 05:26] LABS: Basophils # 0.1 10*3/uL (0.0-0.2); Basophils % 0.3 % (0.0-0.8); Eosinophils # 0.1 10*3/uL (0.0-0.87); Eosinophils % 0.5 % (0.00-10.9); Hematocrit 30.4 VOL% (42.0-52.0); Hemoglobin 10.2 GM/DL (14.0-18.0); Immature Granulocytes % 0.7 %; Lymphocytes # 0.8 10*3/uL (1.4-4.0); Lymphocytes % 5.3 % (21.2-54.2); Mean Corpuscular HGB Conc 33.6 GM/DL (32-36); Mean Corpuscular Volume 90.5 FL (87-102); Monocytes % 3.8 % (1.7-12.7); Neutrophils % 89.4 % (38.7-73.9); Platelet Count 178 T/CUMM (130-400); Red Blood Count 3.36 MC/CUMM (3.8-5.5); Red Cell Distribution Width 14.9 % (9.3-17.3); White Blood Count 14.6 T/CUMM (4-12)
[2019-05-13 05:53] LABS: Albumin 2.4 G/DL (3.4-5.0); Bilirubin,Total 0.8 MG/DL (0.2-1.0); Calcium 8.3 MG/DL (8.5-10.1); Osmolality,Calculated 275.2 MOS/KG (273-304); Thyroid Stimulating Hormone 6.39 uIU/ml (0.358-3.74); Total Protein 6.6 G/DL (6.4-8.3)
[2019-05-13] MEDS: CARVEDILOL 12.5 MG TABLET PO SCH ×2 (09:05→16:43)
[2019-05-13] MEDS: NF- (Ferric Citrate [Auryxia] 420 MG) PO SCH ×3 (09:05→20:52)
[2019-05-13] MEDS: PANTOPRAZOLE 40 MG TABLET PO SCH (09:05)
[2019-05-13] MEDS: ISOSORBIDE DINITRATE 20 MG TABLET PO SCH ×2 (09:06→20:48)
[2019-05-13] MEDS: CALCIUM ACETATE 667 MG CAPSULE PO SCH ×3 (10:55→16:43)
[2019-05-13] MEDS ORDERED: GLUCAGON 1 MG VIAL IM PRN (11:40)
[2019-05-13] MEDS ORDERED: DEXTROSE 50% 25 GM/50 ML VIAL IV PRN (11:40)
[2019-05-13] MEDS: ATORVASTATIN 40 MG TABLET PO SCH (20:49)
[2019-05-13] MEDS: INSULIN GLARGINE 100 UNIT/ML SUBCUT SCH (20:49)
[2019-05-13] MEDS: VANCOMYCIN 50 MG/ML 60 ML/BOTTLE PO SCH (23:50)
[2019-05-14 05:16] LABS: Basophils # 0.1 10*3/uL (0.0-0.2); Basophils % 0.5 % (0.0-0.8); Eosinophils # 0.1 10*3/uL (0.0-0.87); Hematocrit 30.9 VOL% (42.0-52.0); Hemoglobin 9.7 GM/DL (14.0-18.0); Immature Granulocytes % 0.6 %; Immature Granulocytes Absolute 0.06 #; Lymphocytes # 0.5 10*3/uL (1.4-4.0); Lymphocytes % 5.3 % (21.2-54.2); Mean Corpuscular HGB Conc 31.4 GM/DL (32-36); Mean Corpuscular Volume 92.8 FL (87-102); Mean Platelet Volume 10.6 FL (9.6-12.0); Monocytes % 6.5 % (1.7-12.7); Neutrophils % 86.1 % (38.7-73.9); Platelet Count 177 T/CUMM (130-400); Red Blood Count 3.33 MC/CUMM (3.8-5.5); Red Cell Distribution Width 14.8 % (9.3-17.3)
[2019-05-14 05:45] LABS: Albumin 2.3 G/DL (3.4-5.0); Bilirubin,Total 0.6 MG/DL (0.2-1.0); Osmolality,Calculated 280.5 MOS/KG (273-304); Thyroid Stimulating Hormone 6.85 uIU/ml (0.358-3.74); Total Protein 5.9 G/DL (6.4-8.3)
[2019-05-14] MEDS: VANCOMYCIN 50 MG/ML 60 ML/BOTTLE PO SCH ×3 (06:14→19:03)
[2019-05-14] MEDS: PIPERACILLIN/TAZOBACTAM 3,375 MG in SODIUM CHLORIDE 0.9% 100 ML IV SCH ×3 (06:35→23:10)
[2019-05-14] MEDS: CARVEDILOL 12.5 MG TABLET PO SCH ×2 (07:27→16:42)
[2019-05-14] MEDS ORDERED: LIDOCAINE 1% 20 ML VIAL ONE (08:17)
[2019-05-14] MEDS ORDERED: SUGAMMADEX 200 MG/2 ML VIAL IV ONE (09:34)
[2019-05-14] MEDS: CALCIUM ACETATE 667 MG CAPSULE PO SCH ×3 (10:03→16:41)
[2019-05-14] MEDS: PANTOPRAZOLE 40 MG TABLET PO SCH (10:03)
[2019-05-14] MEDS: ISOSORBIDE DINITRATE 20 MG TABLET PO SCH ×2 (10:03→21:47)
[2019-05-14] MEDS: NF- (Ferric Citrate [Auryxia] 420 MG) PO SCH ×3 (10:03→21:48)
[2019-05-14] MEDS ORDERED: EPINEPHrine 1 MG/10 ML SYRINGE ONE (10:11)
[2019-05-14] MEDS ORDERED: PROPOFOL 200 MG/20 ML VIAL IV ONE (10:11)
[2019-05-14] MEDS ORDERED: SEVOFLURANE 1 UNIT/15 MINUTE INH ONE (10:12)
[2019-05-14] MEDS ORDERED: ROCURONIUM 100 MG/10 ML VIAL IV ONE (10:12)
[2019-05-14] MEDS ORDERED: fentaNYL 100 MCG/2 ML VIAL ONE (10:12)
[2019-05-14] MEDS ORDERED: SODIUM CHLORIDE 0.9% 250 ML IV ONE (10:12)
[2019-05-14] MEDS ORDERED: ePHEDrine 50 MG/ML AMP ONE (10:12)
[2019-05-14] MEDS ORDERED: PHENYLEPHRINE 1 MG/10 ML SYRINGE IV ONE (10:12)
[2019-05-14] MEDS ORDERED: ONDANSETRON 4 MG/2 ML VIAL ONE (10:12)
[2019-05-14] MEDS: traMADol 50 MG TABLET PO PRN (16:41)
[2019-05-14] MEDS: ATORVASTATIN 40 MG TABLET PO SCH (21:47)
[2019-05-14] MEDS: INSULIN GLARGINE 100 UNIT/ML SUBCUT SCH (21:48)
[2019-05-15] MEDS: VANCOMYCIN 50 MG/ML 60 ML/BOTTLE PO SCH ×5 (00:14→23:29)
[2019-05-15 03:17] LABS: Basophils # 0.1 10*3/uL (0.0-0.2); Basophils % 0.7 % (0.0-0.8); Eosinophils # 0.2 10*3/uL (0.0-0.87); Eosinophils % 2.2 % (0.00-10.9); Hematocrit 26.3 VOL% (42.0-52.0); Hemoglobin 8.3 GM/DL (14.0-18.0); Immature Granulocytes % 0.6 %; Immature Granulocytes Absolute 0.05 #; Lymphocytes # 1.4 10*3/uL (1.4-4.0); Lymphocytes % 15.4 % (21.2-54.2); Mean Corpuscular HGB Conc 31.6 GM/DL (32-36); Mean Corpuscular Volume 92.9 FL (87-102); Mean Platelet Volume 10.6 FL (9.6-12.0); Monocytes % 11.9 % (1.7-12.7); Neutrophils % 69.2 % (38.7-73.9); Platelet Count 151 T/CUMM (130-400); Red Blood Count 2.83 MC/CUMM (3.8-5.5); White Blood Count 8.8 T/CUMM (4-12)
[2019-05-15 03:56] LABS: Albumin 2.2 G/DL (3.4-5.0); Bilirubin,Total 0.5 MG/DL (0.2-1.0); Calcium 7.7 MG/DL (8.5-10.1); Osmolality,Calculated 271.9 MOS/KG (273-304); Thyroid Stimulating Hormone 7.04 uIU/ml (0.358-3.74)
[2019-05-15] MEDS: PIPERACILLIN/TAZOBACTAM 3,375 MG in SODIUM CHLORIDE 0.9% 100 ML IV SCH ×3 (06:31→23:29)
[2019-05-15] MEDS: traMADol 50 MG TABLET PO PRN ×3 (08:54→21:34)
[2019-05-15] MEDS ORDERED: SODIUM HYPOCHLORITE 0.25% IRR 1 APPLIC in IV BAG 1 EACH IRRIG PRN (09:00)
[2019-05-15] MEDS: CALCIUM ACETATE 667 MG CAPSULE PO SCH ×3 (09:23→17:46)
[2019-05-15] MEDS: ISOSORBIDE DINITRATE 20 MG TABLET PO SCH ×2 (09:24→21:22)
[2019-05-15] MEDS: GABAPENTIN 400 MG CAPSULE PO PRN (09:24)
[2019-05-15] MEDS: PANTOPRAZOLE 40 MG TABLET PO SCH (09:24)
[2019-05-15] MEDS: CARVEDILOL 12.5 MG TABLET PO SCH ×2 (09:24→17:46)
[2019-05-15] MEDS: NF- (Ferric Citrate [Auryxia] 420 MG) PO SCH ×3 (09:27→21:20)
[2019-05-15] MEDS: ATORVASTATIN 40 MG TABLET PO SCH (21:22)
[2019-05-15] MEDS: ZALEPLON 5 MG CAPSULE PO PRN (21:22)
[2019-05-15] MEDS: INSULIN GLARGINE 100 UNIT/ML SUBCUT SCH (21:22)
[2019-05-16 04:38] LABS: Basophils % 0.6 % (0.0-0.8); Eosinophils # 0.3 10*3/uL (0.0-0.87); Eosinophils % 3.7 % (0.00-10.9); Hematocrit 27.9 VOL% (42.0-52.0); Hemoglobin 8.7 GM/DL (14.0-18.0); Immature Granulocytes % 0.6 %; Immature Granulocytes Absolute 0.04 #; Lymphocytes # 1.3 10*3/uL (1.4-4.0); Lymphocytes % 18.1 % (21.2-54.2); Mean Corpuscular HGB Conc 31.2 GM/DL (32-36); Mean Corpuscular Volume 93.3 FL (87-102); Monocytes % 11.1 % (1.7-12.7); Neutrophils % 65.9 % (38.7-73.9); Platelet Count 152 T/CUMM (130-400); Red Blood Count 2.99 MC/CUMM (3.8-5.5)
[2019-05-16 05:13] LABS: Albumin 2.5 G/DL (3.4-5.0); Bilirubin,Total 0.6 MG/DL (0.2-1.0); Calcium 8.4 MG/DL (8.5-10.1); Osmolality,Calculated 271.4 MOS/KG (273-304); Thyroid Stimulating Hormone 8.7 uIU/ml (0.358-3.74); Total Protein 6.3 G/DL (6.4-8.3)
[2019-05-16] MEDS: PIPERACILLIN/TAZOBACTAM 3,375 MG in SODIUM CHLORIDE 0.9% 100 ML IV SCH ×2 (06:28→19:17)
[2019-05-16] MEDS: VANCOMYCIN 50 MG/ML 60 ML/BOTTLE PO SCH ×3 (06:28→19:17)
[2019-05-16] MEDS ORDERED: EPOETIN ALFA 10,000 UNIT/1 ML VIAL IV PRN (06:49)
[2019-05-16] MEDS: NF- (Ferric Citrate [Auryxia] 420 MG) PO SCH ×3 (08:02→21:40)
[2019-05-16] MEDS: ISOSORBIDE DINITRATE 20 MG TABLET PO SCH ×2 (08:13→21:05)
[2019-05-16] MEDS: PANTOPRAZOLE 40 MG TABLET PO SCH (08:13)
[2019-05-16] MEDS: CALCIUM ACETATE 667 MG CAPSULE PO SCH ×3 (08:13→16:19)
[2019-05-16] MEDS: CARVEDILOL 12.5 MG TABLET PO SCH ×2 (08:13→16:19)
[2019-05-16] MEDS ORDERED: POTASSIUM CHLORIDE 20 MEQ TABLET PO PRN (09:08)
[2019-05-16] MEDS: INSULIN GLARGINE 100 UNIT/ML SUBCUT SCH (21:05)
[2019-05-16] MEDS: ATORVASTATIN 40 MG TABLET PO SCH (21:05)
[2019-05-17] MEDS: VANCOMYCIN 50 MG/ML 60 ML/BOTTLE PO SCH ×4 (01:25→17:36)
[2019-05-17] MEDS: LEVOTHYROXINE 50 MCG TABLET PO SCH (06:51)
[2019-05-17] MEDS: PIPERACILLIN/TAZOBACTAM 3,375 MG in SODIUM CHLORIDE 0.9% 100 ML IV SCH ×2 (06:52→17:33)
[2019-05-17] MEDS: CALCIUM ACETATE 667 MG CAPSULE PO SCH ×3 (08:00→17:26)
[2019-05-17] MEDS: NF- (Ferric Citrate [Auryxia] 420 MG) PO SCH ×3 (09:00→21:17)
[2019-05-17] MEDS: CARVEDILOL 12.5 MG TABLET PO SCH ×2 (12:53→17:26)
[2019-05-17] MEDS: ISOSORBIDE DINITRATE 20 MG TABLET PO SCH ×2 (12:53→21:24)
[2019-05-17] MEDS: PANTOPRAZOLE 40 MG TABLET PO SCH (12:54)
[2019-05-17] MEDS: ATORVASTATIN 40 MG TABLET PO SCH (21:24)
[2019-05-17] MEDS: INSULIN GLARGINE 100 UNIT/ML SUBCUT SCH (21:24)
[2019-05-17] MEDS: hydrALAZINE 20 MG/1 ML VIAL IV PRN (23:58)
[2019-05-18] MEDS: VANCOMYCIN 50 MG/ML 60 ML/BOTTLE PO SCH ×4 (05:45→17:05)
[2019-05-18] MEDS: PIPERACILLIN/TAZOBACTAM 3,375 MG in SODIUM CHLORIDE 0.9% 100 ML IV SCH ×2 (05:45→17:05)
[2019-05-18] MEDS: LEVOTHYROXINE 50 MCG TABLET PO SCH (05:51)
[2019-05-18] MEDS: CALCIUM ACETATE 667 MG CAPSULE PO SCH ×3 (07:39→17:04)
[2019-05-18] MEDS: CARVEDILOL 12.5 MG TABLET PO SCH ×2 (07:39→17:08)
[2019-05-18] MEDS: ISOSORBIDE DINITRATE 20 MG TABLET PO SCH ×2 (08:51→22:31)
[2019-05-18] MEDS: NF- (Ferric Citrate [Auryxia] 420 MG) PO SCH ×3 (08:52→22:35)
[2019-05-18] MEDS: PANTOPRAZOLE 40 MG TABLET PO SCH (08:52)
[2019-05-18] MEDS: traMADol 50 MG TABLET PO PRN ×2 (10:13→19:30)
[2019-05-18] MEDS: hydrALAZINE 20 MG/1 ML VIAL IV PRN (12:22)
[2019-05-18] MEDS: INSULIN LISPRO 100 UNIT/ML SUBCUT SCH ×2 (17:05→22:32)
[2019-05-18] MEDS: ATORVASTATIN 40 MG TABLET PO SCH (22:31)
[2019-05-18] MEDS: INSULIN GLARGINE 100 UNIT/ML SUBCUT SCH (22:32)
[2019-05-19] MEDS: VANCOMYCIN 50 MG/ML 60 ML/BOTTLE PO SCH ×4 (00:29→17:48)
[2019-05-19] MEDS: LEVOTHYROXINE 50 MCG TABLET PO SCH (06:14)
[2019-05-19] MEDS: PIPERACILLIN/TAZOBACTAM 3,375 MG in SODIUM CHLORIDE 0.9% 100 ML IV SCH ×2 (06:14→17:47)
[2019-05-19] MEDS: INSULIN LISPRO 100 UNIT/ML SUBCUT SCH ×4 (08:40→21:20)
[2019-05-19] MEDS: NF- (Ferric Citrate [Auryxia] 420 MG) PO SCH ×3 (08:55→20:33)
[2019-05-19] MEDS: ISOSORBIDE DINITRATE 20 MG TABLET PO SCH ×2 (08:55→21:17)
[2019-05-19] MEDS: PANTOPRAZOLE 40 MG TABLET PO SCH (08:55)
[2019-05-19] MEDS: CARVEDILOL 12.5 MG TABLET PO SCH ×2 (08:55→17:08)
[2019-05-19] MEDS: CALCIUM ACETATE 667 MG CAPSULE PO SCH ×3 (08:55→17:08)
[2019-05-19] MEDS: HEPARIN 5,000 UNIT/1 ML VIAL SUBCUT SCH (17:08)
[2019-05-19] MEDS: ATORVASTATIN 40 MG TABLET PO SCH (21:16)
[2019-05-19] MEDS: INSULIN GLARGINE 100 UNIT/ML SUBCUT SCH (21:17)
[2019-05-20] MEDS: HEPARIN 5,000 UNIT/1 ML VIAL SUBCUT SCH ×3 (00:36→16:44)
[2019-05-20] MEDS: VANCOMYCIN 50 MG/ML 60 ML/BOTTLE PO SCH ×5 (00:36→23:26)
[2019-05-20] MEDS: hydrALAZINE 20 MG/1 ML VIAL IV PRN (03:56)
[2019-05-20] MEDS: LEVOTHYROXINE 50 MCG TABLET PO SCH (05:00)
[2019-05-20 05:42] LABS: Basophils # 0.1 10*3/uL (0.0-0.2); Basophils % 0.7 % (0.0-0.8); Eosinophils # 0.3 10*3/uL (0.0-0.87); Eosinophils % 2.5 % (0.00-10.9); Hematocrit 30.5 VOL% (42.0-52.0); Hemoglobin 9.4 GM/DL (14.0-18.0); Immature Granulocytes % 0.9 %; Immature Granulocytes Absolute 0.09 #; Lymphocytes # 1.7 10*3/uL (1.4-4.0); Lymphocytes % 17.2 % (21.2-54.2); Mean Corpuscular HGB Conc 30.8 GM/DL (32-36); Mean Platelet Volume 10.9 FL (9.6-12.0); Monocytes % 6.6 % (1.7-12.7); Neutrophils % 72.1 % (38.7-73.9); Platelet Count 188 T/CUMM (130-400); Red Blood Count 3.21 MC/CUMM (3.8-5.5); Red Cell Distribution Width 14.9 % (9.3-17.3); White Blood Count 10.1 T/CUMM (4-12)
[2019-05-20] MEDS: PIPERACILLIN/TAZOBACTAM 3,375 MG in SODIUM CHLORIDE 0.9% 100 ML IV SCH ×2 (05:58→17:38)
[2019-05-20 06:05] LABS: Calcium 8.8 MG/DL (8.5-10.1); Osmolality,Calculated 276.1 MOS/KG (273-304)
[2019-05-20] MEDS: INSULIN LISPRO 100 UNIT/ML SUBCUT SCH ×4 (08:47→20:39)
[2019-05-20] MEDS: CALCIUM ACETATE 667 MG CAPSULE PO SCH ×3 (08:58→16:44)
[2019-05-20] MEDS: NF- (Ferric Citrate [Auryxia] 420 MG) PO SCH ×3 (08:59→20:39)
[2019-05-20] MEDS: PANTOPRAZOLE 40 MG TABLET PO SCH (08:59)
[2019-05-20] MEDS: ISOSORBIDE DINITRATE 20 MG TABLET PO SCH ×2 (08:59→20:37)
[2019-05-20] MEDS: CARVEDILOL 12.5 MG TABLET PO SCH ×2 (08:59→16:43)
[2019-05-20] MEDS: GABAPENTIN 400 MG CAPSULE PO PRN ×2 (08:59→20:37)
[2019-05-20] MEDS: traMADol 50 MG TABLET PO PRN ×2 (16:43→20:37)
[2019-05-20] MEDS: ATORVASTATIN 40 MG TABLET PO SCH (20:37)
[2019-05-20] MEDS: INSULIN GLARGINE 100 UNIT/ML SUBCUT SCH (20:39)
[2019-05-21] MEDS: HEPARIN 5,000 UNIT/1 ML VIAL SUBCUT SCH ×3 (01:46→17:30)
[2019-05-21 04:38] LABS: Basophils # 0.1 10*3/uL (0.0-0.2); Basophils % 0.7 % (0.0-0.8); Eosinophils # 0.2 10*3/uL (0.0-0.87); Eosinophils % 2.5 % (0.00-10.9); Hematocrit 27.6 VOL% (42.0-52.0); Hemoglobin 8.5 GM/DL (14.0-18.0); Immature Granulocytes % 1.1 %; Immature Granulocytes Absolute 0.09 #; Lymphocytes # 1.6 10*3/uL (1.4-4.0); Lymphocytes % 18.6 % (21.2-54.2); Mean Corpuscular HGB Conc 30.8 GM/DL (32-36); Mean Corpuscular Volume 95.5 FL (87-102); Mean Platelet Volume 10.9 FL (9.6-12.0); Monocytes % 8.5 % (1.7-12.7); Neutrophils % 68.6 % (38.7-73.9); Platelet Count 163 T/CUMM (130-400); Red Blood Count 2.89 MC/CUMM (3.8-5.5); White Blood Count 8.4 T/CUMM (4-12)
[2019-05-21 05:08] LABS: Calcium 8.3 MG/DL (8.5-10.1); Osmolality,Calculated 276.1 MOS/KG (273-304)
[2019-05-21] MEDS: LEVOTHYROXINE 50 MCG TABLET PO SCH (06:01)
[2019-05-21] MEDS: VANCOMYCIN 50 MG/ML 60 ML/BOTTLE PO SCH ×3 (06:01→18:11)
[2019-05-21] MEDS: PIPERACILLIN/TAZOBACTAM 3,375 MG in SODIUM CHLORIDE 0.9% 100 ML IV SCH ×2 (06:02→17:28)
[2019-05-21] MEDS: INSULIN LISPRO 100 UNIT/ML SUBCUT SCH ×4 (07:34→22:24)
[2019-05-21] MEDS: PANTOPRAZOLE 40 MG TABLET PO SCH (09:10)
[2019-05-21] MEDS: CARVEDILOL 12.5 MG TABLET PO SCH ×2 (09:10→17:28)
[2019-05-21] MEDS: ISOSORBIDE DINITRATE 20 MG TABLET PO SCH ×2 (09:10→21:44)
[2019-05-21] MEDS: CALCIUM ACETATE 667 MG CAPSULE PO SCH ×3 (09:10→17:27)
[2019-05-21] MEDS ORDERED: TUBERCULIN SKIN TEST 0.1 ML SYRINGE INTRADERM ONE (09:48)
[2019-05-21] MEDS ORDERED: DEXTROSE 50% 25 GM/50 ML VIAL IV PRN (10:51)
[2019-05-21] MEDS ORDERED: GLUCAGON 1 MG VIAL IM PRN (10:51)
[2019-05-21] MEDS: NF- (Ferric Citrate [Auryxia] 420 MG) PO SCH ×3 (10:53→22:24)
[2019-05-21] MEDS: ATORVASTATIN 40 MG TABLET PO SCH (21:44)
[2019-05-21] MEDS: INSULIN GLARGINE 100 UNIT/ML SUBCUT SCH (21:44)
[2019-05-22] MEDS: HEPARIN 5,000 UNIT/1 ML VIAL SUBCUT SCH ×3 (00:43→16:55)
[2019-05-22] MEDS: VANCOMYCIN 50 MG/ML 60 ML/BOTTLE PO SCH ×4 (00:44→18:28)
[2019-05-22] MEDS: traMADol 50 MG TABLET PO PRN (05:51)
[2019-05-22] MEDS: LEVOTHYROXINE 50 MCG TABLET PO SCH (05:51)
[2019-05-22] MEDS: PIPERACILLIN/TAZOBACTAM 3,375 MG in SODIUM CHLORIDE 0.9% 100 ML IV SCH ×2 (05:52→18:28)
[2019-05-22] MEDS: INSULIN LISPRO 100 UNIT/ML SUBCUT SCH ×4 (08:25→21:33)
[2019-05-22] MEDS: NF- (Ferric Citrate [Auryxia] 420 MG) PO SCH ×3 (08:28→21:33)
[2019-05-22] MEDS: CALCIUM ACETATE 667 MG CAPSULE PO SCH ×3 (08:29→16:53)
[2019-05-22] MEDS: ISOSORBIDE DINITRATE 20 MG TABLET PO SCH ×2 (08:29→21:33)
[2019-05-22] MEDS: CARVEDILOL 12.5 MG TABLET PO SCH ×2 (08:29→16:54)
[2019-05-22] MEDS: PANTOPRAZOLE 40 MG TABLET PO SCH (08:30)
[2019-05-22] MEDS: COLLAGENASE OINT 30 GM TUBE TOP SCH ×2 (12:00→13:49)
[2019-05-22] MEDS: INSULIN GLARGINE 100 UNIT/ML SUBCUT SCH (21:33)
[2019-05-22] MEDS: ATORVASTATIN 40 MG TABLET PO SCH (21:33)
[2019-05-23] MEDS: HEPARIN 5,000 UNIT/1 ML VIAL SUBCUT SCH ×3 (00:56→17:01)
[2019-05-23] MEDS: VANCOMYCIN 50 MG/ML 60 ML/BOTTLE PO SCH ×4 (00:57→17:07)
[2019-05-23] MEDS: traMADol 50 MG TABLET PO PRN ×2 (02:40→18:24)
[2019-05-23] MEDS: LEVOTHYROXINE 50 MCG TABLET PO SCH (05:49)
[2019-05-23] MEDS: PIPERACILLIN/TAZOBACTAM 3,375 MG in SODIUM CHLORIDE 0.9% 100 ML IV SCH ×2 (05:49→17:03)
[2019-05-23] MEDS: INSULIN LISPRO 100 UNIT/ML SUBCUT SCH ×4 (07:29→20:41)
[2019-05-23] MEDS: CALCIUM ACETATE 667 MG CAPSULE PO SCH ×3 (08:35→17:02)
[2019-05-23] MEDS: ISOSORBIDE DINITRATE 20 MG TABLET PO SCH ×2 (08:35→20:41)
[2019-05-23] MEDS: CARVEDILOL 12.5 MG TABLET PO SCH ×2 (08:35→17:02)
[2019-05-23] MEDS: PANTOPRAZOLE 40 MG TABLET PO SCH (08:35)
[2019-05-23] MEDS: GABAPENTIN 400 MG CAPSULE PO PRN ×2 (08:35→20:40)
[2019-05-23] MEDS: NF- (Ferric Citrate [Auryxia] 420 MG) PO SCH ×3 (08:39→20:39)
[2019-05-23] MEDS: COLLAGENASE OINT 30 GM TUBE TOP SCH (09:14)
[2019-05-23] MEDS: LISINOPRIL 5 MG TABLET PO SCH (13:18)
[2019-05-23] MEDS: ZALEPLON 5 MG CAPSULE PO PRN (20:40)
[2019-05-23] MEDS: ATORVASTATIN 40 MG TABLET PO SCH (20:41)
[2019-05-23] MEDS: INSULIN GLARGINE 100 UNIT/ML SUBCUT SCH (20:41)
[2019-05-24] MEDS: HEPARIN 5,000 UNIT/1 ML VIAL SUBCUT SCH ×2 (00:44→08:48)
[2019-05-24] MEDS: VANCOMYCIN 50 MG/ML 60 ML/BOTTLE PO SCH ×3 (00:45→12:13)
[2019-05-24] MEDS: traMADol 50 MG TABLET PO PRN (00:45)
[2019-05-24] MEDS: GABAPENTIN 400 MG CAPSULE PO PRN (04:10)
[2019-05-24] MEDS: hydrALAZINE 20 MG/1 ML VIAL IV PRN (04:10)
[2019-05-24] MEDS: PIPERACILLIN/TAZOBACTAM 3,375 MG in SODIUM CHLORIDE 0.9% 100 ML IV SCH (05:47)
[2019-05-24] MEDS: LEVOTHYROXINE 50 MCG TABLET PO SCH (06:39)
[2019-05-24] MEDS: INSULIN LISPRO 100 UNIT/ML SUBCUT SCH ×2 (07:25→12:12)
[2019-05-24] MEDS: CARVEDILOL 12.5 MG TABLET PO SCH (08:48)
[2019-05-24] MEDS: PANTOPRAZOLE 40 MG TABLET PO SCH (08:48)
[2019-05-24] MEDS: NF- (Ferric Citrate [Auryxia] 420 MG) PO SCH (08:48)
[2019-05-24] MEDS: CALCIUM ACETATE 667 MG CAPSULE PO SCH ×2 (08:48→12:14)
[2019-05-24] MEDS: LISINOPRIL 5 MG TABLET PO SCH (08:48)
[2019-05-24] MEDS: ISOSORBIDE DINITRATE 20 MG TABLET PO SCH (08:48)
[2019-05-24] MEDS: COLLAGENASE OINT 30 GM TUBE TOP SCH (08:49)
[2019-05-24 11:59] VITALS: BP 176/108
== END 2019-05-24 14:21 | disposition home or self-care (01) | DRG 617 ==
LOC: SUATTDRO 10:51 → N.3E 10:51 → N.ICU 05-14 13:29 → N.3E 05-16 17:21
PROVIDERS: ADMIT Internal Medicine; ATTEND Internal Medicine

== ENCOUNTER 2019-09-14 17:30 | Inpatient (IN) ==
[2019-09-14] MEDS ORDERED: VANCOMYCIN INJ 1,000 MG in SODIUM CHLORIDE 0.9% 250 ML IV STA (17:53)
[2019-09-14] MEDS ORDERED: ORPHENADRINE 60 MG/2 ML VIAL IV STA (18:10)
[2019-09-14 18:13] LABS: Basophils # 0.1 10*3/uL (0.0-0.2); Basophils % 0.6 % (0.0-0.8); Eosinophils # 0.3 10*3/uL (0.0-0.87); Hematocrit 32.6 VOL% (42.0-52.0); Hemoglobin 9.9 GM/DL (14.0-18.0); Immature Granulocytes % 1.9 %; Immature Granulocytes Absolute 0.25 #; Lymphocytes # 1.1 10*3/uL (1.4-4.0); Lymphocytes % 8.2 % (21.2-54.2); Mean Corpuscular HGB Conc 30.4 GM/DL (32-36); Mean Platelet Volume 10.2 FL (9.6-12.0); NRBC # 0.02 10*3/uL; Neutrophils % 79.3 % (38.7-73.9); Platelet Count 214 T/CUMM (130-400); Red Blood Count 3.43 MC/CUMM (3.8-5.5); Red Cell Distribution Width 15.9 % (9.3-17.3); White Blood Count 13.2 T/CUMM (4-12)
[2019-09-14 18:31] LABS: INR 1.2; PT Patient Result 12.7 SECS (9.6-12.2)
[2019-09-14 18:44] LABS: Albumin 3.2 G/DL (3.4-5.0); Bilirubin,Total 0.4 MG/DL (0.2-1.0); CKMB % 3.2 %; Calcium 8.6 MG/DL (8.5-10.1); Osmolality,Calculated 321.7 MOS/KG (273-304); Total Protein 7.1 G/DL (6.4-8.3)
[2019-09-14 18:51] LABS: Troponin I 0.12 NG/ML (0.00-0.045)
[2019-09-14] MEDS ORDERED: DEXTROSE 50% 25 GM/50 ML VIAL IV STA (18:57)
[2019-09-14] MEDS ORDERED: CALCIUM CHLORIDE 1,000 MG/10 ML SYRINGE IV STA (18:57)
[2019-09-14] MEDS ORDERED: INSULIN REGULAR 100 UNIT/ML IV ONE (18:57)
[2019-09-14] MEDS ORDERED: ALBUTEROL NEB SOLN 5 MG/ML 20 ML/BOTTLE CONT NEB STA (18:57)
[2019-09-14] MEDS ORDERED: SODIUM BICARB INJ 50 MEQ in DEXTROSE 5% 1,000 ML IV SCH (19:00)
[2019-09-14] MEDS ORDERED: SODIUM BICARBONATE 50 MEQ/50 ML VIAL IV STA (19:15)
[2019-09-14] MEDS ORDERED: SODIUM BICARBONATE 50 MEQ/50 ML SYRINGE IV ONE (19:16)
[2019-09-14] MEDS ORDERED: DEXTROSE 50% 25 GM/50 ML SYRINGE IV ONE (19:17)
[2019-09-14 19:25] LABS: Sedimentation Rate-Westergren 29 MM/HR (0-15)
[2019-09-14] MEDS ORDERED: methylPREDNISolone SOD SUC 125 MG/2 ML VIAL ONE (19:28)
[2019-09-14] MEDS ORDERED: methylPREDNISolone SOD SUC 125 MG/2 ML VIAL IV STA (19:34)
[2019-09-14 20:43] LABS: ABG Base Excess -19.4 MMOL/L (-2.5-2.5); ABG HCO3 10.2 MMOL/L (20-26); ABG Oxygen Saturation 99.3 % (95-100); ABG PCO2 24.5 MM HG (35-48)
[2019-09-14] MEDS ORDERED: ONDANSETRON 4 MG/2 ML VIAL IV PRN (20:44)
[2019-09-14] MEDS ORDERED: GLUCAGON 1 MG VIAL IM PRN (20:44)
[2019-09-14] MEDS ORDERED: MORPHINE 4 MG/1 ML VIAL IV PRN (20:44)
[2019-09-14] MEDS ORDERED: DEXTROSE 50% 25 GM/50 ML VIAL IV PRN (20:44)
[2019-09-14 20:45] LABS: ABG PH 7.147 (7.35-7.45)
[2019-09-14] MEDS: INSULIN REGULAR 100 UNIT/ML SUBCUT SCH (21:31)
[2019-09-14] MEDS: NON-FORMULARY MEDICATION (Ferric Citrate [Auryxia] 420 MG) PO SCH (21:32)
[2019-09-14] MEDS: ATORVASTATIN 40 MG TABLET PO SCH ×2 (21:56→23:40)
[2019-09-14] MEDS: ENOXAPARIN 30 MG/0.3 ML SYRINGE SUBCUT SCH (21:57)
[2019-09-14] MEDS: GABAPENTIN 300 MG CAPSULE PO SCH ×2 (21:57→23:40)
[2019-09-14] MEDS: FUROSEMIDE 80 MG TABLET PO SCH ×2 (21:57→23:40)
[2019-09-14] MEDS: carvediloL 12.5 MG TABLET PO SCH ×2 (21:57→23:40)
[2019-09-14] MEDS ORDERED: AMPICILLIN/SULBACTAM 3,000 MG in SODIUM CHLORIDE 0.9% 100 ML IV SCH (22:00)
[2019-09-14] MEDS ORDERED: CALCIUM GLUCONATE 1,000 MG in SODIUM CHLORIDE 0.9% 100 ML IV ONE (23:19)
[2019-09-14] MEDS ORDERED: SODIUM BICARBONATE 50 MEQ/50 ML VIAL IV ONE (23:19)
[2019-09-14] MEDS ORDERED: CALCIUM GLUCONATE 1,000 MG/10 ML VIAL IV ONE (23:21)
[2019-09-14] MEDS ORDERED: SODIUM CHLORIDE 0.9% 100 ML IV ONE (23:22)
[2019-09-15] MEDS ORDERED: CALCIUM GLUCONATE 1,000 MG in SODIUM CHLORIDE 0.9% 100 ML IV ONE (00:15)
[2019-09-15] MEDS ORDERED: SODIUM CHLORIDE 0.9% 100 ML IV ONE (00:17)
[2019-09-15] MEDS ORDERED: CALCIUM GLUCONATE 1,000 MG/10 ML VIAL IV ONE (00:17)
[2019-09-15 03:32] LABS: Allen Test Positive; Pt O2 Delivery Device Room Air
[2019-09-15 03:33] LABS: ABG Base Excess -7.3 MMOL/L (-2.5-2.5); ABG HCO3 18.5 MMOL/L (20-26); ABG PCO2 25.5 MM HG (35-48); ABG PH 7.407 (7.35-7.45); ABG PO2 97.6 MM HG (80-95); ABG TCO2 14.6 MMOL/L (23-27)
[2019-09-15] MEDS ORDERED: LABETALOL 20 MG/4 ML SYRINGE IV ONE (03:57)
[2019-09-15 04:46] LABS: Basophils % 0.2 % (0.0-0.8); Hematocrit 32.1 VOL% (42.0-52.0); Hemoglobin 10.4 GM/DL (14.0-18.0); Immature Granulocytes % 1.4 %; Immature Granulocytes Absolute 0.17 #; Lymphocytes # 0.2 10*3/uL (1.4-4.0); Lymphocytes % 1.9 % (21.2-54.2); Mean Corpuscular HGB Conc 32.4 GM/DL (32-36); Mean Corpuscular Volume 88.7 FL (87-102); Mean Platelet Volume 11.1 FL (9.6-12.0); Monocytes % 0.6 % (1.7-12.7); Neutrophils % 95.9 % (38.7-73.9); Platelet Count 229 T/CUMM (130-400); Red Blood Count 3.62 MC/CUMM (3.8-5.5); Red Cell Distribution Width 15.9 % (9.3-17.3); White Blood Count 12.3 T/CUMM (4-12)
[2019-09-15 05:04] LABS: Calcium 9.4 MG/DL (8.5-10.1); Osmolality,Calculated 310.5 MOS/KG (273-304)
[2019-09-15 05:18] LABS: Hypochromasia 1+; Lymphocytes 2 % (20-55); Segmented Neutrophils 97 % (50-85); Total Cells Counted 100
[2019-09-15 05:19] LABS: Acanthocytes Few; Microcytosis Slight; Ovalocytes Slight; Platelet Estimate Normal; Target Cells Slight
[2019-09-15] MEDS ORDERED: ISOSORBIDE MONONITRATE 20 MG TABLET PO SCH (06:00)
[2019-09-15] MEDS: carvediloL 12.5 MG TABLET PO SCH ×3 (06:10→17:33)
[2019-09-15] MEDS: LISINOPRIL 5 MG TABLET PO SCH ×2 (06:10→08:51)
[2019-09-15] MEDS: INSULIN REGULAR 100 UNIT/ML SUBCUT SCH ×4 (07:39→21:06)
[2019-09-15] MEDS: ASPIRIN EC 81 MG TABLET PO SCH (08:51)
[2019-09-15] MEDS: CALCIUM ACETATE 667 MG CAPSULE PO SCH ×3 (08:51→17:46)
[2019-09-15] MEDS: GABAPENTIN 300 MG CAPSULE PO SCH ×2 (08:51→21:06)
[2019-09-15] MEDS: PANTOPRAZOLE 40 MG TABLET PO SCH (08:51)
[2019-09-15] MEDS: FUROSEMIDE 80 MG TABLET PO SCH (08:51)
[2019-09-15] MEDS: NON-FORMULARY MEDICATION (Ferric Citrate [Auryxia] 420 MG) PO SCH ×3 (08:52→21:09)
[2019-09-15] MEDS: ENOXAPARIN 30 MG/0.3 ML SYRINGE SUBCUT SCH (08:52)
[2019-09-15] MEDS: ATORVASTATIN 40 MG TABLET PO SCH (21:06)
[2019-09-16 04:53] LABS: Basophils % 0.2 % (0.0-0.8); Eosinophils # 0.1 10*3/uL (0.0-0.87); Eosinophils % 0.5 % (0.00-10.9); Hematocrit 32.1 VOL% (42.0-52.0); Hemoglobin 10.4 GM/DL (14.0-18.0); Immature Granulocytes % 0.9 %; Lymphocytes # 1.1 10*3/uL (1.4-4.0); Lymphocytes % 10.3 % (21.2-54.2); Mean Corpuscular HGB Conc 32.4 GM/DL (32-36); Mean Corpuscular Volume 89.2 FL (87-102); Monocytes % 11.4 % (1.7-12.7); Neutrophils % 76.7 % (38.7-73.9); Platelet Count 225 T/CUMM (130-400); Red Cell Distribution Width 15.7 % (9.3-17.3); White Blood Count 11.1 T/CUMM (4-12)
[2019-09-16 05:40] LABS: Calcium 8.7 MG/DL (8.5-10.1); Osmolality,Calculated 289.8 MOS/KG (273-304)
[2019-09-16] MEDS: INSULIN REGULAR 100 UNIT/ML SUBCUT SCH ×4 (07:41→21:48)
[2019-09-16] MEDS: CALCIUM ACETATE 667 MG CAPSULE PO SCH ×3 (08:43→16:38)
[2019-09-16] MEDS: GABAPENTIN 300 MG CAPSULE PO SCH ×2 (08:43→21:47)
[2019-09-16] MEDS: PANTOPRAZOLE 40 MG TABLET PO SCH (08:44)
[2019-09-16] MEDS: ENOXAPARIN 30 MG/0.3 ML SYRINGE SUBCUT SCH (08:44)
[2019-09-16] MEDS: ASPIRIN EC 81 MG TABLET PO SCH (08:44)
[2019-09-16] MEDS: NON-FORMULARY MEDICATION (Ferric Citrate [Auryxia] 420 MG) PO SCH ×3 (08:45→21:46)
[2019-09-16] MEDS: LISINOPRIL 5 MG TABLET PO SCH (12:58)
[2019-09-16] MEDS: MULTIVITAMIN (BEROCCA) TABLET PO SCH (12:59)
[2019-09-16] MEDS: ISOSORBIDE DINITRATE 20 MG TABLET PO SCH ×2 (12:59→21:47)
[2019-09-16] MEDS: ACETAMINOPHEN 325 MG TABLET PO PRN (13:03)
[2019-09-16] MEDS: ATORVASTATIN 40 MG TABLET PO SCH (21:47)
[2019-09-17] MEDS: ACETAMINOPHEN 325 MG TABLET PO PRN ×2 (02:43→20:37)
[2019-09-17] MEDS: NON-FORMULARY MEDICATION (Ferric Citrate [Auryxia] 420 MG) PO SCH ×3 (08:51→20:36)
[2019-09-17] MEDS ORDERED: ONDANSETRON 4 MG/2 ML VIAL IV PRN (09:18)
[2019-09-17] MEDS: ENOXAPARIN 30 MG/0.3 ML SYRINGE SUBCUT SCH (09:19)
[2019-09-17] MEDS: INSULIN REGULAR 100 UNIT/ML SUBCUT SCH ×4 (09:20→20:37)
[2019-09-17] MEDS: CALCIUM ACETATE 667 MG CAPSULE PO SCH ×3 (09:21→17:48)
[2019-09-17] MEDS: MULTIVITAMIN (BEROCCA) TABLET PO SCH (09:21)
[2019-09-17] MEDS: GABAPENTIN 300 MG CAPSULE PO SCH ×2 (09:21→20:39)
[2019-09-17] MEDS: LISINOPRIL 5 MG TABLET PO SCH (09:21)
[2019-09-17] MEDS: ISOSORBIDE DINITRATE 20 MG TABLET PO SCH ×2 (09:21→20:37)
[2019-09-17] MEDS: PANTOPRAZOLE 40 MG TABLET PO SCH (09:21)
[2019-09-17] MEDS: ASPIRIN EC 81 MG TABLET PO SCH (09:21)
[2019-09-17] MEDS: ATORVASTATIN 40 MG TABLET PO SCH (20:37)
[2019-09-18] MEDS: ASPIRIN EC 81 MG TABLET PO SCH (09:43)
[2019-09-18] MEDS: LISINOPRIL 5 MG TABLET PO SCH (09:43)
[2019-09-18] MEDS: CALCIUM ACETATE 667 MG CAPSULE PO SCH ×2 (09:44→12:13)
[2019-09-18] MEDS: GABAPENTIN 300 MG CAPSULE PO SCH (09:44)
[2019-09-18] MEDS: MULTIVITAMIN (BEROCCA) TABLET PO SCH (09:44)
[2019-09-18] MEDS: ISOSORBIDE DINITRATE 20 MG TABLET PO SCH (09:44)
[2019-09-18] MEDS: PANTOPRAZOLE 40 MG TABLET PO SCH (09:44)
[2019-09-18] MEDS: ENOXAPARIN 30 MG/0.3 ML SYRINGE SUBCUT SCH (09:44)
[2019-09-18] MEDS: NON-FORMULARY MEDICATION (Ferric Citrate [Auryxia] 420 MG) PO SCH ×2 (09:46→14:48)
[2019-09-18] MEDS: INSULIN REGULAR 100 UNIT/ML SUBCUT SCH ×2 (09:46→12:14)
[2019-09-18 12:38] VITALS: BP 202/100
[2019-09-20 01:32] LABS: CDT Result Negative (Negative); CDT Specimen Source STOOL
== END 2019-09-18 14:56 | disposition home or self-care (01) | DRG 640 ==
LOC: N.ED 17:30 → SUATTDRO 19:40 → N.EDINP 19:40 → N.5E 20:37 → N.ICU 22:44 → N.5E 09-16 10:56
PROVIDERS: ADMIT Internal Medicine Geriatric Medicine; ATTEND Internal Medicine

== ENCOUNTER 2019-10-15 13:53 | Inpatient (IN) ==
[2019-10-15] MEDS ORDERED: DEXTROSE 10% 250 ML BAG IV PRN (14:42)
[2019-10-15] MEDS ORDERED: GLUCAGON 1 MG VIAL IM PRN (14:42)
[2019-10-15] MEDS ORDERED: PIPERACILLIN/TAZOBACTAM 3,375 MG in SODIUM CHLORIDE 0.9% 100 ML IV SCH (16:00)
[2019-10-15 16:03] LABS: Basophils % 0.1 % (0.0-0.8); Eosinophils % 0.2 % (0.00-10.9); Hematocrit 31.2 VOL% (42.0-52.0); Hemoglobin 9.7 GM/DL (14.0-18.0); Immature Granulocytes % 1.8 %; Immature Granulocytes Absolute 0.41 #; Lymphocytes # 0.7 10*3/uL (1.4-4.0); Lymphocytes % 2.9 % (21.2-54.2); Mean Corpuscular HGB Conc 31.1 GM/DL (32-36); Mean Corpuscular Volume 90.4 FL (87-102); Mean Platelet Volume 11.8 FL (9.6-12.0); Monocytes % 5.2 % (1.7-12.7); Neutrophils % 89.8 % (38.7-73.9); Platelet Count 263 T/CUMM (130-400); Red Blood Count 3.45 MC/CUMM (3.8-5.5); White Blood Count 22.4 T/CUMM (4-12)
[2019-10-15 16:25] LABS: Calcium 8.1 MG/DL (8.5-10.1); Osmolality,Calculated 269.5 MOS/KG (273-304)
[2019-10-15 17:00] LABS: Anisocytosis Slight; Band Neutrophils 8 % (0-10); Eosinophils 2 % (0-10); Lymphocytes 3 % (20-55); Microcytosis Slight; Platelet Estimate Normal; Segmented Neutrophils 80 % (50-85); Total Cells Counted 100
[2019-10-15] MEDS: INSULIN LISPRO 100 UNIT/ML SUBCUT SCH (17:20)
[2019-10-15] MEDS: ACETAMINOPHEN 325 MG TABLET PO PRN (17:22)
[2019-10-15] MEDS ORDERED: VANCOMYCIN INJ 2,000 MG in SODIUM CHLORIDE 0.9% 500 ML IV ONE (23:00)
[2019-10-16] MEDS: ACETAMINOPHEN 325 MG TABLET PO PRN (00:25)
[2019-10-16] MEDS ORDERED: VANCOMYCIN INJ 2,000 MG in SODIUM CHLORIDE 0.9% 500 ML IV ONE (03:30)
[2019-10-16] MEDS: INSULIN LISPRO 100 UNIT/ML SUBCUT SCH ×3 (08:04→17:17)
[2019-10-16] MEDS: PANTOPRAZOLE 40 MG TABLET PO SCH (09:06)
[2019-10-16] MEDS ORDERED: HYDROmorphone 2 MG/1 ML VIAL IV ONE (09:50)
[2019-10-16] MEDS ORDERED: PROPOFOL 200 MG/20 ML VIAL IV ONE (12:09)
[2019-10-16] MEDS ORDERED: LIDOCAINE 2% 5 ML VIAL ONE (12:09)
[2019-10-16] MEDS ORDERED: fentaNYL 100 MCG/2 ML VIAL ONE (12:10)
[2019-10-16] MEDS ORDERED: EPINEPHrine 1 MG/ML VIAL ONE (12:10)
[2019-10-16] MEDS ORDERED: ONDANSETRON 4 MG/2 ML VIAL ONE (12:10)
[2019-10-16] MEDS ORDERED: KETAMINE 500 MG/10 ML VIAL ONE (12:10)
[2019-10-16] MEDS ORDERED: MIDAZOLAM 2 MG/2 ML VIAL ONE (12:10)
[2019-10-16] MEDS ORDERED: PHENYLEPHRINE 1 MG/10 ML SYRINGE IV ONE (12:11)
[2019-10-16] MEDS ORDERED: VANCOMYCIN INJ 750 MG in SODIUM CHLORIDE 0.9% 250 ML IV PRN (17:00)
[2019-10-16] MEDS ORDERED: VANCOMYCIN INJ 750 MG in SODIUM CHLORIDE 0.9% 250 ML IV ONE (17:00)
[2019-10-16] MEDS: CALCIUM ACETATE 667 MG CAPSULE PO SCH (17:17)
[2019-10-16 18:06] LABS: Hematocrit 27.4 VOL% (42.0-52.0); Hemoglobin 8.7 GM/DL (14.0-18.0)
[2019-10-16] MEDS: PIPERACILLIN/TAZOBACTAM 3,375 MG in SODIUM CHLORIDE 0.9% 100 ML IV SCH (18:22)
[2019-10-16] MEDS: carvediloL 12.5 MG TABLET PO SCH (18:22)
[2019-10-16 18:27] LABS: Calcium 7.8 MG/DL (8.5-10.1); Osmolality,Calculated 274.1 MOS/KG (273-304)
[2019-10-16] MEDS ORDERED: MAGNESIUM SULF RIDER 4 GM in PREMIX 1 EACH IV PRN (18:34)
[2019-10-16] MEDS ORDERED: MORPHINE 4 MG/1 ML VIAL IV PRN ×2 (18:34→18:40)
[2019-10-16] MEDS ORDERED: MAGNESIUM SULF RIDER 2 GM in PREMIX 1 EACH IV PRN (18:34)
[2019-10-16] MEDS: GABAPENTIN 300 MG CAPSULE PO SCH (20:49)
[2019-10-16] MEDS: ISOSORBIDE DINITRATE 20 MG TABLET PO SCH (20:49)
[2019-10-16] MEDS: ATORVASTATIN 40 MG TABLET PO SCH (20:49)
[2019-10-16] MEDS: MORPHINE 4 MG/1 ML VIAL IV PRN (21:43)
[2019-10-17] MEDS: PIPERACILLIN/TAZOBACTAM 3,375 MG in SODIUM CHLORIDE 0.9% 100 ML IV SCH ×2 (02:03→13:26)
[2019-10-17 05:05] LABS: Basophils # 0.1 10*3/uL (0.0-0.2); Basophils % 0.2 % (0.0-0.8); Eosinophils # 0.2 10*3/uL (0.0-0.87); Eosinophils % 0.7 % (0.00-10.9); Hematocrit 27.8 VOL% (42.0-52.0); Hemoglobin 8.7 GM/DL (14.0-18.0); Immature Granulocytes % 1.5 %; Immature Granulocytes Absolute 0.33 #; Lymphocytes % 4.5 % (21.2-54.2); Mean Corpuscular HGB Conc 31.3 GM/DL (32-36); Mean Corpuscular Volume 89.7 FL (87-102); Mean Platelet Volume 11.7 FL (9.6-12.0); Monocytes % 6.5 % (1.7-12.7); NRBC # 0.02 10*3/uL; Neutrophils % 86.6 % (38.7-73.9); Platelet Count 215 T/CUMM (130-400); Red Cell Distribution Width 16.3 % (9.3-17.3); White Blood Count 22.7 T/CUMM (4-12)
[2019-10-17 05:18] LABS: Calcium 7.9 MG/DL (8.5-10.1); Osmolality,Calculated 278.4 MOS/KG (273-304)
[2019-10-17 05:39] LABS: Band Neutrophils 1 % (0-10); Hypochromasia 1+; Lymphocytes 3 % (20-55); Ovalocytes Slight; Platelet Estimate Adequate; Segmented Neutrophils 90 % (50-85); Total Cells Counted 100
[2019-10-17 05:40] LABS: Microcytosis Slight
[2019-10-17] MEDS: MORPHINE 4 MG/1 ML VIAL IV PRN (07:59)
[2019-10-17] MEDS: ASPIRIN EC 81 MG TABLET PO SCH (09:30)
[2019-10-17] MEDS: GABAPENTIN 300 MG CAPSULE PO SCH (09:30)
[2019-10-17] MEDS: CALCIUM ACETATE 667 MG CAPSULE PO SCH ×3 (09:30→17:22)
[2019-10-17] MEDS: MULTIVITAMIN (BEROCCA) TABLET PO SCH (09:30)
[2019-10-17] MEDS: PANTOPRAZOLE 40 MG TABLET PO SCH (09:30)
[2019-10-17] MEDS: carvediloL 12.5 MG TABLET PO SCH ×2 (09:30→17:22)
[2019-10-17] MEDS ORDERED: POTASSIUM CHLORIDE 20 MEQ TABLET PO ONE (10:02)
[2019-10-17] MEDS: INSULIN LISPRO 100 UNIT/ML SUBCUT SCH ×3 (10:14→17:22)
[2019-10-17] MEDS: ISOSORBIDE DINITRATE 20 MG TABLET PO SCH (10:19)
[2019-10-17] MEDS: traMADol 50 MG TABLET PO PRN ×2 (10:28→20:21)
[2019-10-17] MEDS: ATORVASTATIN 40 MG TABLET PO SCH (20:21)
[2019-10-18] MEDS: PIPERACILLIN/TAZOBACTAM 3,375 MG in SODIUM CHLORIDE 0.9% 100 ML IV SCH ×2 (00:10→13:50)
[2019-10-18] MEDS: traMADol 50 MG TABLET PO PRN ×3 (04:39→20:09)
[2019-10-18 05:06] LABS: Basophils # 0.1 10*3/uL (0.0-0.2); Basophils % 0.3 % (0.0-0.8); Eosinophils # 0.2 10*3/uL (0.0-0.87); Hematocrit 30.4 VOL% (42.0-52.0); Hemoglobin 9.1 GM/DL (14.0-18.0); Immature Granulocytes % 2.5 %; Immature Granulocytes Absolute 0.46 #; Lymphocytes # 1.3 10*3/uL (1.4-4.0); Lymphocytes % 6.9 % (21.2-54.2); Mean Corpuscular HGB Conc 29.9 GM/DL (32-36); Mean Corpuscular Volume 90.5 FL (87-102); Mean Platelet Volume 11.2 FL (9.6-12.0); Monocytes % 6.8 % (1.7-12.7); NRBC # 0.02 10*3/uL; Neutrophils % 82.5 % (38.7-73.9); Platelet Count 258 T/CUMM (130-400); Red Blood Count 3.36 MC/CUMM (3.8-5.5); Red Cell Distribution Width 16.2 % (9.3-17.3); White Blood Count 18.1 T/CUMM (4-12)
[2019-10-18 05:21] LABS: Calcium 7.7 MG/DL (8.5-10.1)
[2019-10-18] MEDS: ASPIRIN EC 81 MG TABLET PO SCH (08:33)
[2019-10-18] MEDS: INSULIN LISPRO 100 UNIT/ML SUBCUT SCH ×3 (08:33→17:12)
[2019-10-18] MEDS: GABAPENTIN 300 MG CAPSULE PO SCH (08:33)
[2019-10-18] MEDS: MULTIVITAMIN (BEROCCA) TABLET PO SCH (08:33)
[2019-10-18] MEDS: carvediloL 12.5 MG TABLET PO SCH ×2 (08:33→17:12)
[2019-10-18] MEDS: CALCIUM ACETATE 667 MG CAPSULE PO SCH ×3 (08:33→17:12)
[2019-10-18] MEDS: PANTOPRAZOLE 40 MG TABLET PO SCH (08:33)
[2019-10-18] MEDS ORDERED: LOPERAMIDE 2 MG CAPSULE PO PRN (09:00)
[2019-10-18] MEDS: FERRIC CITRATE 420 MG PO SCH ×2 (15:43→20:11)
[2019-10-18] MEDS ORDERED: VANCOMYCIN INJ 750 MG in SODIUM CHLORIDE 0.9% 250 ML IV ONE (17:00)
[2019-10-18] MEDS: ISOSORBIDE DINITRATE 20 MG TABLET PO SCH (20:10)
[2019-10-18] MEDS: ATORVASTATIN 40 MG TABLET PO SCH (20:10)
[2019-10-19] MEDS: PIPERACILLIN/TAZOBACTAM 3,375 MG in SODIUM CHLORIDE 0.9% 100 ML IV SCH ×2 (00:38→12:23)
[2019-10-19 06:34] LABS: Basophils # 0.1 10*3/uL (0.0-0.2); Basophils % 0.5 % (0.0-0.8); Eosinophils # 0.4 10*3/uL (0.0-0.87); Eosinophils % 2.4 % (0.00-10.9); Hematocrit 28.4 VOL% (42.0-52.0); Hemoglobin 8.7 GM/DL (14.0-18.0); Immature Granulocytes % 4.6 %; Immature Granulocytes Absolute 0.69 #; Lymphocytes # 1.1 10*3/uL (1.4-4.0); Lymphocytes % 7.2 % (21.2-54.2); Mean Corpuscular HGB Conc 30.6 GM/DL (32-36); Mean Corpuscular Volume 90.2 FL (87-102); Mean Platelet Volume 11.3 FL (9.6-12.0); Monocytes % 9.1 % (1.7-12.7); NRBC # 0.02 10*3/uL; Neutrophils % 76.2 % (38.7-73.9); Platelet Count 276 T/CUMM (130-400); Red Blood Count 3.15 MC/CUMM (3.8-5.5); Red Cell Distribution Width 16.5 % (9.3-17.3); White Blood Count 14.9 T/CUMM (4-12)
[2019-10-19 06:51] LABS: Calcium 7.5 MG/DL (8.5-10.1); Osmolality,Calculated 285.1 MOS/KG (273-304)
[2019-10-19 07:02] LABS: Eosinophils 4 % (0-10); Hypochromasia 1+; Lymphocytes 9 % (20-55); Ovalocytes Slight; Platelet Estimate Adequate; Segmented Neutrophils 77 % (50-85); Total Cells Counted 100
[2019-10-19 07:03] LABS: Microcytosis Slight
[2019-10-19] MEDS: traMADol 50 MG TABLET PO PRN (07:20)
[2019-10-19] MEDS: CALCIUM ACETATE 667 MG CAPSULE PO SCH ×3 (07:58→17:18)
[2019-10-19] MEDS: INSULIN LISPRO 100 UNIT/ML SUBCUT SCH ×3 (07:58→17:08)
[2019-10-19] MEDS: carvediloL 12.5 MG TABLET PO SCH ×2 (07:58→17:18)
[2019-10-19] MEDS: PANTOPRAZOLE 40 MG TABLET PO SCH (08:00)
[2019-10-19] MEDS: ISOSORBIDE DINITRATE 20 MG TABLET PO SCH ×2 (08:00→21:16)
[2019-10-19] MEDS: MULTIVITAMIN (BEROCCA) TABLET PO SCH (08:00)
[2019-10-19] MEDS: GABAPENTIN 300 MG CAPSULE PO SCH (08:00)
[2019-10-19] MEDS: ASPIRIN EC 81 MG TABLET PO SCH (08:00)
[2019-10-19] MEDS: FERRIC CITRATE 420 MG PO SCH ×3 (08:02→21:13)
[2019-10-19] MEDS: ATORVASTATIN 40 MG TABLET PO SCH (21:16)
[2019-10-20] MEDS: PIPERACILLIN/TAZOBACTAM 3,375 MG in SODIUM CHLORIDE 0.9% 100 ML IV SCH ×2 (01:36→13:10)
[2019-10-20] MEDS: ISOSORBIDE DINITRATE 20 MG TABLET PO SCH ×3 (08:24→21:15)
[2019-10-20] MEDS: MULTIVITAMIN (BEROCCA) TABLET PO SCH (08:24)
[2019-10-20] MEDS: ASPIRIN EC 81 MG TABLET PO SCH (08:24)
[2019-10-20] MEDS: PANTOPRAZOLE 40 MG TABLET PO SCH (08:24)
[2019-10-20] MEDS: INSULIN LISPRO 100 UNIT/ML SUBCUT SCH ×3 (08:24→17:20)
[2019-10-20] MEDS: CALCIUM ACETATE 667 MG CAPSULE PO SCH ×3 (08:24→17:20)
[2019-10-20] MEDS: carvediloL 12.5 MG TABLET PO SCH ×2 (08:24→17:20)
[2019-10-20] MEDS: FERRIC CITRATE 420 MG PO SCH ×3 (08:24→21:15)
[2019-10-20] MEDS: GABAPENTIN 300 MG CAPSULE PO SCH (08:24)
[2019-10-20] MEDS: traMADol 50 MG TABLET PO PRN (13:11)
[2019-10-20] MEDS ORDERED: VANCOMYCIN INJ 750 MG in SODIUM CHLORIDE 0.9% 250 ML IV ONE (17:00)
[2019-10-20] MEDS: ATORVASTATIN 40 MG TABLET PO SCH (21:15)
[2019-10-21] MEDS: PIPERACILLIN/TAZOBACTAM 3,375 MG in SODIUM CHLORIDE 0.9% 100 ML IV SCH ×2 (01:40→12:31)
[2019-10-21] MEDS: traMADol 50 MG TABLET PO PRN ×4 (01:40→23:38)
[2019-10-21] MEDS: INSULIN LISPRO 100 UNIT/ML SUBCUT SCH ×3 (07:33→17:52)
[2019-10-21] MEDS: carvediloL 12.5 MG TABLET PO SCH ×2 (08:48→17:52)
[2019-10-21] MEDS: PANTOPRAZOLE 40 MG TABLET PO SCH (08:48)
[2019-10-21] MEDS: GABAPENTIN 300 MG CAPSULE PO SCH (08:48)
[2019-10-21] MEDS: ISOSORBIDE DINITRATE 20 MG TABLET PO SCH ×2 (08:48→21:00)
[2019-10-21] MEDS: ASPIRIN EC 81 MG TABLET PO SCH (08:48)
[2019-10-21] MEDS: CALCIUM ACETATE 667 MG CAPSULE PO SCH ×3 (08:48→17:52)
[2019-10-21] MEDS: FERRIC CITRATE 420 MG PO SCH ×2 (08:49→14:55)
[2019-10-21] MEDS: MULTIVITAMIN (BEROCCA) TABLET PO SCH (09:45)
[2019-10-21] MEDS: BISACODYL 5 MG TABLET PO PRN (14:53)
[2019-10-21] MEDS: ATORVASTATIN 40 MG TABLET PO SCH (21:00)
[2019-10-22] MEDS: PIPERACILLIN/TAZOBACTAM 3,375 MG in SODIUM CHLORIDE 0.9% 100 ML IV SCH ×2 (00:59→13:14)
[2019-10-22] MEDS: FERRIC CITRATE 420 MG PO SCH ×4 (05:07→23:57)
[2019-10-22 05:12] LABS: Basophils # 0.1 10*3/uL (0.0-0.2); Basophils % 0.5 % (0.0-0.8); Eosinophils # 0.4 10*3/uL (0.0-0.87); Hematocrit 29.2 VOL% (42.0-52.0); Hemoglobin 8.8 GM/DL (14.0-18.0); Immature Granulocytes % 7.1 %; Immature Granulocytes Absolute 1.25 #; Lymphocytes # 1.5 10*3/uL (1.4-4.0); Lymphocytes % 8.4 % (21.2-54.2); Mean Corpuscular HGB Conc 30.1 GM/DL (32-36); Mean Corpuscular Volume 91.8 FL (87-102); Mean Platelet Volume 10.7 FL (9.6-12.0); Monocytes % 8.8 % (1.7-12.7); Neutrophils % 73.2 % (38.7-73.9); Platelet Count 250 T/CUMM (130-400); Red Blood Count 3.18 MC/CUMM (3.8-5.5); Red Cell Distribution Width 16.5 % (9.3-17.3); White Blood Count 17.7 T/CUMM (4-12)
[2019-10-22] MEDS: MORPHINE 4 MG/1 ML VIAL IV PRN (05:20)
[2019-10-22 05:55] LABS: Albumin 2.1 G/DL (3.4-5.0); Osmolality,Calculated 283.4 MOS/KG (273-304); Total Protein 5.8 G/DL (6.4-8.3)
[2019-10-22 06:13] LABS: Anisocytosis 1+; Band Neutrophils 1 % (0-10); Eosinophils 2 % (0-10); Lymphocytes 8 % (20-55); Platelet Estimate Adequate; Segmented Neutrophils 80 % (50-85); Total Cells Counted 100
[2019-10-22] MEDS: ASPIRIN EC 81 MG TABLET PO SCH (08:15)
[2019-10-22] MEDS: CALCIUM ACETATE 667 MG CAPSULE PO SCH ×3 (08:15→17:58)
[2019-10-22] MEDS: MULTIVITAMIN (BEROCCA) TABLET PO SCH (08:15)
[2019-10-22] MEDS: INSULIN LISPRO 100 UNIT/ML SUBCUT SCH ×3 (08:15→17:51)
[2019-10-22] MEDS: carvediloL 12.5 MG TABLET PO SCH ×2 (08:16→17:58)
[2019-10-22] MEDS: PANTOPRAZOLE 40 MG TABLET PO SCH (08:16)
[2019-10-22] MEDS: ISOSORBIDE DINITRATE 20 MG TABLET PO SCH ×2 (08:16→21:34)
[2019-10-22] MEDS: GABAPENTIN 300 MG CAPSULE PO SCH (08:16)
[2019-10-22] MEDS ORDERED: SODIUM CHLORIDE 0.9% 250 ML IV SCH (09:30)
[2019-10-22] MEDS ORDERED: PROPOFOL 200 MG/20 ML VIAL IV ONE (10:45)
[2019-10-22] MEDS ORDERED: SEVOFLURANE 1 UNIT/15 MINUTE INH ONE (10:45)
[2019-10-22] MEDS ORDERED: LIDOCAINE 2% 5 ML VIAL ONE (10:45)
[2019-10-22] MEDS ORDERED: SODIUM CHLORIDE 0.9% 250 ML IV ONE (10:46)
[2019-10-22] MEDS ORDERED: fentaNYL 100 MCG/2 ML VIAL ONE (10:46)
[2019-10-22] MEDS ORDERED: ONDANSETRON 4 MG/2 ML VIAL ONE ×2 (10:46→11:19)
[2019-10-22] MEDS ORDERED: ePHEDrine 50 MG/ML AMP ONE (10:46)
[2019-10-22] MEDS ORDERED: EPINEPHrine 1 MG/ML VIAL ONE (10:46)
[2019-10-22] MEDS ORDERED: ETOMIDATE 40 MG/20 ML VIAL IV ONE (10:46)
[2019-10-22] MEDS ORDERED: MIDAZOLAM 2 MG/2 ML VIAL ONE (10:46)
[2019-10-22] MEDS ORDERED: ALBUTEROL INHALER 8 GM INH ONE (10:47)
[2019-10-22] MEDS ORDERED: ALBUTEROL/IPRATROPIUM 3 ML NEB RESP TX ONE ×2 (11:09→11:10)
[2019-10-22] MEDS ORDERED: HYDROmorphone 2 MG/1 ML VIAL ONE (11:19)
[2019-10-22] MEDS: ONDANSETRON 4 MG/2 ML VIAL IV PRN ×2 (11:20→17:54)
[2019-10-22] MEDS: HYDROmorphone 2 MG/1 ML VIAL IV PRN ×10 (11:20→23:27)
[2019-10-22] MEDS ORDERED: ONDANSETRON 4 MG/2 ML VIAL IV PRN (11:49)
[2019-10-22] MEDS ORDERED: diphenhydrAMINE CAP 25 MG CAPSULE ONE (13:58)
[2019-10-22] MEDS ORDERED: DIAZEPAM 5 MG TABLET ONE (13:58)
[2019-10-22] MEDS ORDERED: ASPIRIN 325 MG TABLET ONE (13:58)
[2019-10-22] MEDS ORDERED: FUROSEMIDE 40 MG/4 ML VIAL IV ONE (15:24)
[2019-10-22] MEDS: ATORVASTATIN 40 MG TABLET PO SCH (21:34)
[2019-10-22] MEDS: ALBUTEROL/IPRATROPIUM 3 ML NEB RESP TX PRN (22:52)
[2019-10-23] MEDS: HYDROmorphone 2 MG/1 ML VIAL IV PRN ×3 (01:28→05:49)
[2019-10-23] MEDS: PIPERACILLIN/TAZOBACTAM 3,375 MG in SODIUM CHLORIDE 0.9% 100 ML IV SCH ×2 (01:28→20:52)
[2019-10-23 04:45] LABS: Basophils # 0.1 10*3/uL (0.0-0.2); Basophils % 0.5 % (0.0-0.8); Eosinophils # 0.3 10*3/uL (0.0-0.87); Eosinophils % 1.4 % (0.00-10.9); Hematocrit 33.4 VOL% (42.0-52.0); Hemoglobin 10.1 GM/DL (14.0-18.0); Immature Granulocytes % 5.3 %; Immature Granulocytes Absolute 1.09 #; Lymphocytes # 1.6 10*3/uL (1.4-4.0); Lymphocytes % 7.9 % (21.2-54.2); Mean Corpuscular HGB Conc 30.2 GM/DL (32-36); Mean Corpuscular Volume 90.8 FL (87-102); Mean Platelet Volume 10.8 FL (9.6-12.0); Monocytes % 7.6 % (1.7-12.7); Neutrophils % 77.3 % (38.7-73.9); Platelet Count 266 T/CUMM (130-400); Red Blood Count 3.68 MC/CUMM (3.8-5.5); Red Cell Distribution Width 16.6 % (9.3-17.3); White Blood Count 20.6 T/CUMM (4-12)
[2019-10-23 04:55] LABS: Calcium 8.3 MG/DL (8.5-10.1); Osmolality,Calculated 277.8 MOS/KG (273-304)
[2019-10-23 05:11] LABS: Band Neutrophils 1 % (0-10); Lymphocytes 9 % (20-55); Segmented Neutrophils 85 % (50-85); Total Cells Counted 100
[2019-10-23 05:12] LABS: Anisocytosis 1+; Platelet Estimate Normal
[2019-10-23] MEDS: PANTOPRAZOLE 40 MG TABLET PO SCH (08:03)
[2019-10-23] MEDS: carvediloL 12.5 MG TABLET PO SCH ×2 (08:03→17:23)
[2019-10-23] MEDS: ISOSORBIDE DINITRATE 20 MG TABLET PO SCH ×2 (08:03→20:53)
[2019-10-23] MEDS: CALCIUM ACETATE 667 MG CAPSULE PO SCH ×3 (08:03→17:23)
[2019-10-23] MEDS: MULTIVITAMIN (BEROCCA) TABLET PO SCH (08:03)
[2019-10-23] MEDS: INSULIN LISPRO 100 UNIT/ML SUBCUT SCH ×3 (08:03→18:09)
[2019-10-23] MEDS: ASPIRIN EC 81 MG TABLET PO SCH (08:03)
[2019-10-23] MEDS: GABAPENTIN 300 MG CAPSULE PO SCH (08:03)
[2019-10-23] MEDS: MORPHINE 4 MG/1 ML VIAL IV PRN ×5 (08:04→23:47)
[2019-10-23] MEDS: FERRIC CITRATE 420 MG PO SCH ×3 (08:07→22:33)
[2019-10-23] MEDS ORDERED: TUBERCULIN SKIN TEST 0.1 ML SYRINGE INTRADERM ONE (09:19)
[2019-10-23] MEDS ORDERED: VANCOMYCIN INJ 750 MG in SODIUM CHLORIDE 0.9% 250 ML IV ONE (17:00)
[2019-10-23] MEDS: ATORVASTATIN 40 MG TABLET PO SCH (20:52)
[2019-10-24] MEDS: traMADol 50 MG TABLET PO PRN ×4 (01:10→21:06)
[2019-10-24] MEDS: MORPHINE 4 MG/1 ML VIAL IV PRN ×2 (02:28→05:34)
[2019-10-24 05:43] LABS: Basophils # 0.1 10*3/uL (0.0-0.2); Basophils % 0.4 % (0.0-0.8); Eosinophils # 0.2 10*3/uL (0.0-0.87); Eosinophils % 1.3 % (0.00-10.9); Hematocrit 29.1 VOL% (42.0-52.0); Immature Granulocytes % 3.5 %; Immature Granulocytes Absolute 0.62 #; Lymphocytes # 1.5 10*3/uL (1.4-4.0); Lymphocytes % 8.3 % (21.2-54.2); Mean Corpuscular HGB Conc 30.9 GM/DL (32-36); Mean Corpuscular Volume 89.5 FL (87-102); Mean Platelet Volume 10.4 FL (9.6-12.0); Monocytes % 9.5 % (1.7-12.7); Platelet Count 244 T/CUMM (130-400); Red Blood Count 3.25 MC/CUMM (3.8-5.5); Red Cell Distribution Width 16.3 % (9.3-17.3)
[2019-10-24 06:11] LABS: Calcium 7.9 MG/DL (8.5-10.1); Osmolality,Calculated 282.5 MOS/KG (273-304)
[2019-10-24 06:15] LABS: Band Neutrophils 2 % (0-10); Eosinophils 4 % (0-10); Lymphocytes 10 % (20-55); Segmented Neutrophils 74 % (50-85); Total Cells Counted 100
[2019-10-24 06:16] LABS: Anisocytosis 1+; Atypical Lymphocytes Few; Hypochromasia 1+; Microcytosis 1+; Ovalocytes Few
[2019-10-24 06:17] LABS: Platelet Estimate Normal; Polychromasia Slight
[2019-10-24] MEDS: INSULIN LISPRO 100 UNIT/ML SUBCUT SCH ×3 (08:29→16:49)
[2019-10-24] MEDS: FERRIC CITRATE 420 MG PO SCH ×3 (08:30→21:07)
[2019-10-24] MEDS: MULTIVITAMIN (BEROCCA) TABLET PO SCH (08:30)
[2019-10-24] MEDS: GABAPENTIN 300 MG CAPSULE PO SCH ×2 (08:30→21:06)
[2019-10-24] MEDS: carvediloL 12.5 MG TABLET PO SCH ×2 (08:30→17:23)
[2019-10-24] MEDS: ISOSORBIDE DINITRATE 20 MG TABLET PO SCH ×2 (08:30→21:07)
[2019-10-24] MEDS: ASPIRIN EC 81 MG TABLET PO SCH (08:30)
[2019-10-24] MEDS: PANTOPRAZOLE 40 MG TABLET PO SCH (08:30)
[2019-10-24] MEDS: CALCIUM ACETATE 667 MG CAPSULE PO SCH ×3 (08:30→17:23)
[2019-10-24] MEDS: PIPERACILLIN/TAZOBACTAM 3,375 MG in SODIUM CHLORIDE 0.9% 100 ML IV SCH ×2 (08:36→21:05)
[2019-10-24] MEDS: HYDROmorphone 2 MG/1 ML VIAL IV PRN ×2 (11:47→23:40)
[2019-10-24] MEDS: METHOCARBAMOL 500 MG TABLET PO SCH ×2 (12:14→21:07)
[2019-10-24] MEDS: BENZONATATE 100 MG CAPSULE PO PRN (14:08)
[2019-10-24] MEDS: ALBUTEROL/IPRATROPIUM 3 ML NEB RESP TX PRN (14:19)
[2019-10-24] MEDS: ALBUTEROL/IPRATROPIUM 3 ML NEB RESP TX SCH (20:37)
[2019-10-24] MEDS: ATORVASTATIN 40 MG TABLET PO SCH (21:07)
[2019-10-25] MEDS: ALBUTEROL/IPRATROPIUM 3 ML NEB RESP TX SCH ×4 (00:55→20:15)
[2019-10-25] MEDS: HYDROmorphone 2 MG/1 ML VIAL IV PRN ×3 (07:49→20:40)
[2019-10-25] MEDS: ASPIRIN EC 81 MG TABLET PO SCH (08:56)
[2019-10-25] MEDS: BENZONATATE 100 MG CAPSULE PO PRN (08:56)
[2019-10-25] MEDS: CALCIUM ACETATE 667 MG CAPSULE PO SCH ×3 (08:56→16:41)
[2019-10-25] MEDS: PIPERACILLIN/TAZOBACTAM 3,375 MG in SODIUM CHLORIDE 0.9% 100 ML IV SCH ×2 (08:56→20:45)
[2019-10-25] MEDS: ISOSORBIDE DINITRATE 20 MG TABLET PO SCH ×2 (08:56→20:40)
[2019-10-25] MEDS: PANTOPRAZOLE 40 MG TABLET PO SCH (08:56)
[2019-10-25] MEDS: METHOCARBAMOL 500 MG TABLET PO SCH ×2 (08:56→20:40)
[2019-10-25] MEDS: GABAPENTIN 300 MG CAPSULE PO SCH ×2 (08:56→20:40)
[2019-10-25] MEDS: carvediloL 12.5 MG TABLET PO SCH ×2 (08:56→16:41)
[2019-10-25] MEDS: MULTIVITAMIN (BEROCCA) TABLET PO SCH (08:56)
[2019-10-25] MEDS: INSULIN LISPRO 100 UNIT/ML SUBCUT SCH ×3 (08:57→17:34)
[2019-10-25] MEDS: FERRIC CITRATE 420 MG PO SCH ×2 (08:57→14:08)
[2019-10-25 09:30] LABS: Basophils # 0.1 10*3/uL (0.0-0.2); Basophils % 0.5 % (0.0-0.8); Eosinophils # 0.3 10*3/uL (0.0-0.87); Eosinophils % 1.7 % (0.00-10.9); Hematocrit 26.2 VOL% (42.0-52.0); Hemoglobin 8.1 GM/DL (14.0-18.0); Immature Granulocytes % 3.1 %; Immature Granulocytes Absolute 0.49 #; Lymphocytes # 1.9 10*3/uL (1.4-4.0); Lymphocytes % 12.2 % (21.2-54.2); Mean Corpuscular HGB Conc 30.9 GM/DL (32-36); Mean Corpuscular Volume 90.3 FL (87-102); Mean Platelet Volume 10.7 FL (9.6-12.0); Monocytes % 8.9 % (1.7-12.7); Neutrophils % 73.6 % (38.7-73.9); Platelet Count 279 T/CUMM (130-400); Red Cell Distribution Width 16.3 % (9.3-17.3); White Blood Count 15.8 T/CUMM (4-12)
[2019-10-25 09:38] LABS: Calcium 7.9 MG/DL (8.5-10.1); Osmolality,Calculated 279.1 MOS/KG (273-304)
[2019-10-25] MEDS: traMADol 50 MG TABLET PO PRN ×2 (10:12→17:33)
[2019-10-25] MEDS ORDERED: VANCOMYCIN INJ 750 MG in SODIUM CHLORIDE 0.9% 250 ML IV ONE (17:00)
[2019-10-25] MEDS: ATORVASTATIN 40 MG TABLET PO SCH (20:40)
[2019-10-26] MEDS: ALBUTEROL/IPRATROPIUM 3 ML NEB RESP TX SCH ×4 (01:35→19:45)
[2019-10-26] MEDS: FERRIC CITRATE 420 MG PO SCH ×4 (01:35→21:04)
[2019-10-26] MEDS: HYDROmorphone 2 MG/1 ML VIAL IV PRN ×2 (03:39→05:45)
[2019-10-26] MEDS: traMADol 50 MG TABLET PO PRN (05:09)
[2019-10-26 05:28] LABS: Basophils # 0.1 10*3/uL (0.0-0.2); Basophils % 0.5 % (0.0-0.8); Eosinophils # 0.3 10*3/uL (0.0-0.87); Eosinophils % 1.5 % (0.00-10.9); Hematocrit 28.8 VOL% (42.0-52.0); Hemoglobin 8.9 GM/DL (14.0-18.0); Immature Granulocytes % 1.9 %; Immature Granulocytes Absolute 0.35 #; Lymphocytes # 1.8 10*3/uL (1.4-4.0); Lymphocytes % 9.5 % (21.2-54.2); Mean Corpuscular HGB Conc 30.9 GM/DL (32-36); Mean Corpuscular Volume 90.6 FL (87-102); Mean Platelet Volume 10.5 FL (9.6-12.0); Monocytes % 7.9 % (1.7-12.7); Neutrophils % 78.7 % (38.7-73.9); Platelet Count 305 T/CUMM (130-400); Red Blood Count 3.18 MC/CUMM (3.8-5.5); Red Cell Distribution Width 16.3 % (9.3-17.3); White Blood Count 18.8 T/CUMM (4-12)
[2019-10-26 05:52] LABS: Calcium 8.4 MG/DL (8.5-10.1); Osmolality,Calculated 278.7 MOS/KG (273-304)
[2019-10-26] MEDS: KETOROLAC 15 MG/1 ML VIAL IV SCH ×3 (08:27→21:04)
[2019-10-26] MEDS: PIPERACILLIN/TAZOBACTAM 3,375 MG in SODIUM CHLORIDE 0.9% 100 ML IV SCH ×2 (08:27→21:07)
[2019-10-26] MEDS: INSULIN LISPRO 100 UNIT/ML SUBCUT SCH ×3 (08:28→16:27)
[2019-10-26] MEDS: CALCIUM ACETATE 667 MG CAPSULE PO SCH ×3 (08:30→17:18)
[2019-10-26] MEDS: MULTIVITAMIN (BEROCCA) TABLET PO SCH (08:30)
[2019-10-26] MEDS: ISOSORBIDE DINITRATE 20 MG TABLET PO SCH ×2 (08:30→21:04)
[2019-10-26] MEDS: carvediloL 12.5 MG TABLET PO SCH ×2 (08:30→17:18)
[2019-10-26] MEDS: oxyCODONE/ACETAMINOPHEN 5-325 MG TABLET PO PRN ×2 (08:30→17:24)
[2019-10-26] MEDS: PANTOPRAZOLE 40 MG TABLET PO SCH (08:30)
[2019-10-26] MEDS: GABAPENTIN 300 MG CAPSULE PO SCH ×3 (08:30→21:04)
[2019-10-26] MEDS: ASPIRIN EC 81 MG TABLET PO SCH (08:30)
[2019-10-26] MEDS: METHOCARBAMOL 500 MG TABLET PO SCH ×2 (08:30→21:04)
[2019-10-26] MEDS: ATORVASTATIN 40 MG TABLET PO SCH (21:04)
[2019-10-27] MEDS: KETOROLAC 15 MG/1 ML VIAL IV SCH ×4 (01:02→19:29)
[2019-10-27] MEDS: ALBUTEROL/IPRATROPIUM 3 ML NEB RESP TX SCH ×4 (01:14→19:42)
[2019-10-27] MEDS: oxyCODONE/ACETAMINOPHEN 5-325 MG TABLET PO PRN ×2 (04:13→17:29)
[2019-10-27 05:45] LABS: Basophils # 0.1 10*3/uL (0.0-0.2); Basophils % 0.5 % (0.0-0.8); Eosinophils # 0.3 10*3/uL (0.0-0.87); Eosinophils % 2.1 % (0.00-10.9); Hematocrit 27.2 VOL% (42.0-52.0); Hemoglobin 8.2 GM/DL (14.0-18.0); Immature Granulocytes % 1.8 %; Immature Granulocytes Absolute 0.27 #; Lymphocytes # 1.5 10*3/uL (1.4-4.0); Lymphocytes % 9.6 % (21.2-54.2); Mean Corpuscular HGB Conc 30.1 GM/DL (32-36); Mean Corpuscular Volume 91.6 FL (87-102); Mean Platelet Volume 9.8 FL (9.6-12.0); Platelet Count 272 T/CUMM (130-400); Red Blood Count 2.97 MC/CUMM (3.8-5.5); Red Cell Distribution Width 16.1 % (9.3-17.3); White Blood Count 15.4 T/CUMM (4-12)
[2019-10-27 06:03] LABS: Calcium 8.1 MG/DL (8.5-10.1); Osmolality,Calculated 284.7 MOS/KG (273-304)
[2019-10-27] MEDS: INSULIN LISPRO 100 UNIT/ML SUBCUT SCH ×3 (12:38→17:22)
[2019-10-27] MEDS: CALCIUM ACETATE 667 MG CAPSULE PO SCH ×3 (12:39→17:22)
[2019-10-27] MEDS: PANTOPRAZOLE 40 MG TABLET PO SCH (12:49)
[2019-10-27] MEDS: GABAPENTIN 300 MG CAPSULE PO SCH ×3 (12:49→20:49)
[2019-10-27] MEDS: ISOSORBIDE DINITRATE 20 MG TABLET PO SCH ×2 (12:49→20:49)
[2019-10-27] MEDS: METHOCARBAMOL 500 MG TABLET PO SCH ×2 (12:49→20:49)
[2019-10-27] MEDS: carvediloL 12.5 MG TABLET PO SCH ×2 (12:50→17:22)
[2019-10-27] MEDS: PIPERACILLIN/TAZOBACTAM 3,375 MG in SODIUM CHLORIDE 0.9% 100 ML IV SCH ×2 (12:51→20:46)
[2019-10-27] MEDS: MULTIVITAMIN (BEROCCA) TABLET PO SCH (12:51)
[2019-10-27] MEDS: FERRIC CITRATE 420 MG PO SCH ×3 (12:55→20:50)
[2019-10-27] MEDS: ASPIRIN EC 81 MG TABLET PO SCH (13:00)
[2019-10-27] MEDS ORDERED: VANCOMYCIN INJ 750 MG in SODIUM CHLORIDE 0.9% 250 ML IV ONE (17:00)
[2019-10-27] MEDS: ATORVASTATIN 40 MG TABLET PO SCH (20:49)
[2019-10-28] MEDS: KETOROLAC 15 MG/1 ML VIAL IV SCH ×4 (00:30→19:42)
[2019-10-28] MEDS: oxyCODONE/ACETAMINOPHEN 5-325 MG TABLET PO PRN ×3 (00:33→13:59)
[2019-10-28] MEDS: ALBUTEROL/IPRATROPIUM 3 ML NEB RESP TX SCH ×4 (01:11→19:36)
[2019-10-28 01:44] LABS: Basophils # 0.1 10*3/uL (0.0-0.2); Basophils % 0.5 % (0.0-0.8); Eosinophils # 0.3 10*3/uL (0.0-0.87); Eosinophils % 1.8 % (0.00-10.9); Hematocrit 27.1 VOL% (42.0-52.0); Hemoglobin 8.4 GM/DL (14.0-18.0); Immature Granulocytes % 1.1 %; Immature Granulocytes Absolute 0.17 #; Lymphocytes # 1.6 10*3/uL (1.4-4.0); Mean Corpuscular Volume 90.6 FL (87-102); Mean Platelet Volume 10.1 FL (9.6-12.0); Monocytes % 8.5 % (1.7-12.7); Neutrophils % 78.1 % (38.7-73.9); Platelet Count 281 T/CUMM (130-400); Red Blood Count 2.99 MC/CUMM (3.8-5.5); Red Cell Distribution Width 16.7 % (9.3-17.3); White Blood Count 15.6 T/CUMM (4-12)
[2019-10-28 02:00] LABS: Calcium 7.9 MG/DL (8.5-10.1)
[2019-10-28] MEDS: MULTIVITAMIN (BEROCCA) TABLET PO SCH (08:48)
[2019-10-28] MEDS: METHOCARBAMOL 500 MG TABLET PO SCH ×2 (08:48→20:56)
[2019-10-28] MEDS: CALCIUM ACETATE 667 MG CAPSULE PO SCH ×3 (08:48→16:44)
[2019-10-28] MEDS: ASPIRIN EC 81 MG TABLET PO SCH (08:49)
[2019-10-28] MEDS: ISOSORBIDE DINITRATE 20 MG TABLET PO SCH ×2 (08:49→20:56)
[2019-10-28] MEDS: INSULIN LISPRO 100 UNIT/ML SUBCUT SCH ×3 (08:49→16:44)
[2019-10-28] MEDS: GABAPENTIN 300 MG CAPSULE PO SCH ×3 (08:49→20:56)
[2019-10-28] MEDS: carvediloL 12.5 MG TABLET PO SCH ×2 (08:50→16:44)
[2019-10-28] MEDS: FERRIC CITRATE 420 MG PO SCH ×3 (08:51→20:57)
[2019-10-28] MEDS: PANTOPRAZOLE 40 MG TABLET PO SCH (08:51)
[2019-10-28] MEDS: PIPERACILLIN/TAZOBACTAM 3,375 MG in SODIUM CHLORIDE 0.9% 100 ML IV SCH ×2 (09:50→20:57)
[2019-10-28] MEDS: ATORVASTATIN 40 MG TABLET PO SCH (20:56)
[2019-10-29] MEDS: ALBUTEROL/IPRATROPIUM 3 ML NEB RESP TX SCH ×4 (00:50→18:30)
[2019-10-29] MEDS: KETOROLAC 15 MG/1 ML VIAL IV SCH ×4 (00:55→20:11)
[2019-10-29 05:43] LABS: Basophils # 0.1 10*3/uL (0.0-0.2); Basophils % 0.7 % (0.0-0.8); Eosinophils # 0.3 10*3/uL (0.0-0.87); Eosinophils % 2.2 % (0.00-10.9); Hematocrit 26.9 VOL% (42.0-52.0); Hemoglobin 8.2 GM/DL (14.0-18.0); Immature Granulocytes % 1.1 %; Immature Granulocytes Absolute 0.16 #; Lymphocytes # 1.5 10*3/uL (1.4-4.0); Mean Corpuscular HGB Conc 30.5 GM/DL (32-36); Mean Corpuscular Volume 91.5 FL (87-102); Mean Platelet Volume 9.9 FL (9.6-12.0); Monocytes % 9.5 % (1.7-12.7); Neutrophils % 76.5 % (38.7-73.9); Platelet Count 257 T/CUMM (130-400); Red Blood Count 2.94 MC/CUMM (3.8-5.5); Red Cell Distribution Width 16.6 % (9.3-17.3); White Blood Count 14.9 T/CUMM (4-12)
[2019-10-29 06:06] LABS: Calcium 8.4 MG/DL (8.5-10.1); Osmolality,Calculated 287.2 MOS/KG (273-304)
[2019-10-29] MEDS: PIPERACILLIN/TAZOBACTAM 3,375 MG in SODIUM CHLORIDE 0.9% 100 ML IV SCH ×2 (08:35→21:36)
[2019-10-29] MEDS: INSULIN LISPRO 100 UNIT/ML SUBCUT SCH ×3 (08:37→16:41)
[2019-10-29] MEDS: ISOSORBIDE DINITRATE 20 MG TABLET PO SCH ×2 (08:38→21:36)
[2019-10-29] MEDS: METHOCARBAMOL 500 MG TABLET PO SCH ×2 (08:38→21:36)
[2019-10-29] MEDS: carvediloL 12.5 MG TABLET PO SCH ×2 (08:38→16:42)
[2019-10-29] MEDS: CALCIUM ACETATE 667 MG CAPSULE PO SCH ×3 (08:38→16:42)
[2019-10-29] MEDS: GABAPENTIN 300 MG CAPSULE PO SCH ×3 (08:38→21:36)
[2019-10-29] MEDS: PANTOPRAZOLE 40 MG TABLET PO SCH (08:38)
[2019-10-29] MEDS: ASPIRIN EC 81 MG TABLET PO SCH (08:38)
[2019-10-29] MEDS: MULTIVITAMIN (BEROCCA) TABLET PO SCH (08:38)
[2019-10-29] MEDS: FERRIC CITRATE 420 MG PO SCH ×2 (09:55→14:51)
[2019-10-29] MEDS: ATORVASTATIN 40 MG TABLET PO SCH (21:36)
[2019-10-30] MEDS: FERRIC CITRATE 420 MG PO SCH ×4 (00:17→21:49)
[2019-10-30] MEDS: ALBUTEROL/IPRATROPIUM 3 ML NEB RESP TX SCH ×4 (00:20→20:57)
[2019-10-30] MEDS: KETOROLAC 15 MG/1 ML VIAL IV SCH ×4 (00:57→21:48)
[2019-10-30] MEDS: PIPERACILLIN/TAZOBACTAM 3,375 MG in SODIUM CHLORIDE 0.9% 100 ML IV SCH (08:46)
[2019-10-30] MEDS: CALCIUM ACETATE 667 MG CAPSULE PO SCH ×3 (08:47→16:59)
[2019-10-30] MEDS: METHOCARBAMOL 500 MG TABLET PO SCH ×2 (08:47→21:48)
[2019-10-30] MEDS: GABAPENTIN 300 MG CAPSULE PO SCH ×3 (08:47→21:48)
[2019-10-30] MEDS: PANTOPRAZOLE 40 MG TABLET PO SCH (08:47)
[2019-10-30] MEDS: ISOSORBIDE DINITRATE 20 MG TABLET PO SCH ×2 (08:47→21:50)
[2019-10-30] MEDS: MULTIVITAMIN (BEROCCA) TABLET PO SCH (08:47)
[2019-10-30] MEDS: BISACODYL 5 MG TABLET PO PRN (08:47)
[2019-10-30] MEDS: carvediloL 12.5 MG TABLET PO SCH ×2 (08:47→16:59)
[2019-10-30] MEDS: ASPIRIN EC 81 MG TABLET PO SCH (08:47)
[2019-10-30] MEDS: INSULIN LISPRO 100 UNIT/ML SUBCUT SCH ×3 (08:48→17:08)
[2019-10-30] MEDS ORDERED: VANCOMYCIN INJ 750 MG in SODIUM CHLORIDE 0.9% 250 ML IV ONE (17:00)
[2019-10-30] MEDS ORDERED: BISACODYL 10 MG SUPP RECTAL ONE (20:38)
[2019-10-30] MEDS ORDERED: POLYETHYLENE GLYCOL POWDER 17 GM PACK PO SCH (21:00)
[2019-10-30] MEDS: ATORVASTATIN 40 MG TABLET PO SCH (21:49)
[2019-10-31] MEDS: ALBUTEROL/IPRATROPIUM 3 ML NEB RESP TX SCH ×4 (02:14→19:30)
[2019-10-31] MEDS: KETOROLAC 15 MG/1 ML VIAL IV SCH (02:52)
[2019-10-31 05:46] LABS: Basophils # 0.1 10*3/uL (0.0-0.2); Basophils % 0.7 % (0.0-0.8); Eosinophils # 0.4 10*3/uL (0.0-0.87); Eosinophils % 2.2 % (0.00-10.9); Hematocrit 26.4 VOL% (42.0-52.0); Hemoglobin 7.9 GM/DL (14.0-18.0); Immature Granulocytes Absolute 0.16 #; Lymphocytes # 1.5 10*3/uL (1.4-4.0); Lymphocytes % 8.8 % (21.2-54.2); Mean Corpuscular HGB Conc 29.9 GM/DL (32-36); Mean Corpuscular Volume 90.7 FL (87-102); Mean Platelet Volume 10.1 FL (9.6-12.0); Monocytes % 6.9 % (1.7-12.7); Neutrophils % 80.4 % (38.7-73.9); Platelet Count 248 T/CUMM (130-400); Red Blood Count 2.91 MC/CUMM (3.8-5.5); Red Cell Distribution Width 16.8 % (9.3-17.3); White Blood Count 16.5 T/CUMM (4-12)
[2019-10-31 05:58] LABS: Calcium 8.5 MG/DL (8.5-10.1); Osmolality,Calculated 295.5 MOS/KG (273-304)
[2019-10-31] MEDS: MULTIVITAMIN (BEROCCA) TABLET PO SCH (08:19)
[2019-10-31] MEDS: POLYETHYLENE GLYCOL POWDER 17 GM PACK PO SCH ×3 (08:19→22:08)
[2019-10-31] MEDS: CALCIUM ACETATE 667 MG CAPSULE PO SCH ×3 (08:19→16:07)
[2019-10-31] MEDS: METHOCARBAMOL 500 MG TABLET PO SCH ×2 (08:19→22:06)
[2019-10-31] MEDS: ISOSORBIDE DINITRATE 20 MG TABLET PO SCH ×2 (08:20→22:06)
[2019-10-31] MEDS: INSULIN LISPRO 100 UNIT/ML SUBCUT SCH ×3 (08:20→17:03)
[2019-10-31] MEDS: FERRIC CITRATE 420 MG PO SCH ×3 (08:20→22:06)
[2019-10-31] MEDS: carvediloL 12.5 MG TABLET PO SCH ×2 (08:20→16:07)
[2019-10-31] MEDS: PANTOPRAZOLE 40 MG TABLET PO SCH (08:20)
[2019-10-31] MEDS: ASPIRIN EC 81 MG TABLET PO SCH (08:20)
[2019-10-31] MEDS: GABAPENTIN 300 MG CAPSULE PO SCH ×3 (08:20→22:06)
[2019-10-31] MEDS: ATORVASTATIN 40 MG TABLET PO SCH (22:05)
[2019-11-01] MEDS: ALBUTEROL/IPRATROPIUM 3 ML NEB RESP TX SCH ×4 (00:20→19:54)
[2019-11-01 05:00] LABS: Basophils # 0.1 10*3/uL (0.0-0.2); Basophils % 0.7 % (0.0-0.8); Eosinophils # 0.3 10*3/uL (0.0-0.87); Eosinophils % 1.6 % (0.00-10.9); Hematocrit 28.3 VOL% (42.0-52.0); Hemoglobin 8.6 GM/DL (14.0-18.0); Immature Granulocytes % 0.8 %; Immature Granulocytes Absolute 0.14 #; Lymphocytes # 1.6 10*3/uL (1.4-4.0); Lymphocytes % 8.6 % (21.2-54.2); Mean Corpuscular HGB Conc 30.4 GM/DL (32-36); Mean Corpuscular Volume 91.3 FL (87-102); Mean Platelet Volume 10.4 FL (9.6-12.0); Neutrophils % 81.3 % (38.7-73.9); Platelet Count 260 T/CUMM (130-400); Red Cell Distribution Width 16.9 % (9.3-17.3); White Blood Count 18.4 T/CUMM (4-12)
[2019-11-01 05:13] LABS: Calcium 8.6 MG/DL (8.5-10.1); Osmolality,Calculated 299.7 MOS/KG (273-304)
[2019-11-01] MEDS: MULTIVITAMIN (BEROCCA) TABLET PO SCH (08:00)
[2019-11-01] MEDS: ASPIRIN EC 81 MG TABLET PO SCH (08:00)
[2019-11-01] MEDS: carvediloL 12.5 MG TABLET PO SCH ×2 (08:00→16:06)
[2019-11-01] MEDS: ISOSORBIDE DINITRATE 20 MG TABLET PO SCH ×2 (08:00→22:58)
[2019-11-01] MEDS: INSULIN LISPRO 100 UNIT/ML SUBCUT SCH ×3 (08:00→16:46)
[2019-11-01] MEDS: PANTOPRAZOLE 40 MG TABLET PO SCH (08:00)
[2019-11-01] MEDS: METHOCARBAMOL 500 MG TABLET PO SCH ×2 (08:00→22:59)
[2019-11-01] MEDS: CALCIUM ACETATE 667 MG CAPSULE PO SCH ×3 (08:00→16:06)
[2019-11-01] MEDS: GABAPENTIN 300 MG CAPSULE PO SCH ×3 (08:00→22:57)
[2019-11-01] MEDS: FERRIC CITRATE 420 MG PO SCH ×3 (08:01→22:58)
[2019-11-01] MEDS: POLYETHYLENE GLYCOL POWDER 17 GM PACK PO SCH ×2 (08:01→22:57)
[2019-11-01] MEDS: PIPERACILLIN/TAZOBACTAM 3,375 MG in SODIUM CHLORIDE 0.9% 100 ML IV SCH ×3 (10:26→22:56)
[2019-11-01] MEDS ORDERED: VANCOMYCIN INJ 750 MG in SODIUM CHLORIDE 0.9% 250 ML IV ONE (17:00)
[2019-11-01] MEDS: ATORVASTATIN 40 MG TABLET PO SCH (22:57)
[2019-11-02] MEDS: ALBUTEROL/IPRATROPIUM 3 ML NEB RESP TX SCH ×3 (00:56→13:02)
[2019-11-02] MEDS: oxyCODONE/ACETAMINOPHEN 5-325 MG TABLET PO PRN (03:10)
[2019-11-02 07:00] LABS: Basophils # 0.1 10*3/uL (0.0-0.2); Basophils % 0.5 % (0.0-0.8); Eosinophils # 0.4 10*3/uL (0.0-0.87); Eosinophils % 2.9 % (0.00-10.9); Hematocrit 25.4 VOL% (42.0-52.0); Hemoglobin 7.6 GM/DL (14.0-18.0); Immature Granulocytes Absolute 0.14 #; Lymphocytes # 1.7 10*3/uL (1.4-4.0); Lymphocytes % 12.4 % (21.2-54.2); Mean Corpuscular HGB Conc 29.9 GM/DL (32-36); Mean Platelet Volume 10.5 FL (9.6-12.0); Monocytes % 11.9 % (1.7-12.7); NRBC # 0.02 10*3/uL; Neutrophils % 71.3 % (38.7-73.9); Platelet Count 215 T/CUMM (130-400); Red Blood Count 2.76 MC/CUMM (3.8-5.5)
[2019-11-02 07:18] LABS: Calcium 7.9 MG/DL (8.5-10.1); Osmolality,Calculated 294.8 MOS/KG (273-304)
[2019-11-02] MEDS: INSULIN LISPRO 100 UNIT/ML SUBCUT SCH ×2 (07:41→11:49)
[2019-11-02] MEDS: CALCIUM ACETATE 667 MG CAPSULE PO SCH ×2 (09:14→13:57)
[2019-11-02] MEDS: ISOSORBIDE DINITRATE 20 MG TABLET PO SCH (09:14)
[2019-11-02] MEDS: METHOCARBAMOL 500 MG TABLET PO SCH (09:14)
[2019-11-02] MEDS: ASPIRIN EC 81 MG TABLET PO SCH (09:14)
[2019-11-02] MEDS: GABAPENTIN 300 MG CAPSULE PO SCH (09:15)
[2019-11-02] MEDS: FERRIC CITRATE 420 MG PO SCH ×2 (09:15→14:01)
[2019-11-02] MEDS: carvediloL 12.5 MG TABLET PO SCH (09:15)
[2019-11-02] MEDS: MULTIVITAMIN (BEROCCA) TABLET PO SCH (09:15)
[2019-11-02] MEDS: POLYETHYLENE GLYCOL POWDER 17 GM PACK PO SCH (09:15)
[2019-11-02] MEDS: PANTOPRAZOLE 40 MG TABLET PO SCH (09:16)
[2019-11-02] MEDS: PIPERACILLIN/TAZOBACTAM 3,375 MG in SODIUM CHLORIDE 0.9% 100 ML IV SCH (09:40)
[2019-11-02 16:07] VITALS: BP 133/82
== END 2019-11-02 17:38 | disposition home health service (06) | DRG 239 ==
LOC: N.5E 15:01 → N.CC 10-16 12:33 → N.3E 10-21 10:42
PROVIDERS: ADMIT Surgery; ATTEND Surgery

== ENCOUNTER 2019-12-12 10:47 | Inpatient (IN) ==
[~2019-12-12 10:47] MED LIST: CLINDAMYCIN INJ 600 MG in PREMIX 1 EACH IV ONE
[2019-12-12 11:11] LABS: Hematocrit 30.9 VOL% (42.0-52.0); Hemoglobin 9.7 GM/DL (14.0-18.0)
[2019-12-12] MEDS: SODIUM CHLORIDE 0.9% 250 ML IV SCH (12:00)
[2019-12-12] MEDS ORDERED: CLINDAMYCIN INJ 50 ML IV ONE (12:32)
[2019-12-12] MEDS ORDERED: LIDOCAINE 1%/EPI INJ 20 ML VIAL ONE (12:53)
[2019-12-12] MEDS ORDERED: BUPIVACAINE 0.5% 50 ML VIAL ONE (12:53)
[2019-12-12] MEDS ORDERED: propofoL 200 MG/20 ML VIAL IV ONE (14:30)
[2019-12-12] MEDS ORDERED: SEVOFLURANE 1 UNIT/15 MINUTE INH ONE (14:31)
[2019-12-12] MEDS ORDERED: LIDOCAINE 2% 5 ML VIAL ONE (14:31)
[2019-12-12] MEDS ORDERED: fentaNYL 100 MCG/2 ML VIAL ONE (14:31)
[2019-12-12] MEDS ORDERED: MIDAZOLAM 2 MG/2 ML VIAL ONE (14:31)
[2019-12-12] MEDS ORDERED: PHENYLEPHRINE 1 MG/10 ML SYRINGE IV ONE (14:32)
[2019-12-12] MEDS ORDERED: SODIUM CHLORIDE 0.9% 250 ML IV ONE (14:32)
[2019-12-12] MEDS ORDERED: ePHEDrine 50 MG/ML AMP ONE (14:32)
[2019-12-12] MEDS ORDERED: INFLUENZA VIRUS VACCINE 0.5 ML SYRINGE IM ONE (16:54)
[2019-12-12] MEDS: MORPHINE 4 MG/1 ML VIAL IV PRN ×2 (18:23→23:13)
[2019-12-12] MEDS ORDERED: KETOROLAC 15 MG/1 ML VIAL IV PRN (21:00)
[2019-12-12] MEDS ORDERED: ONDANSETRON 4 MG/2 ML VIAL IV PRN (21:00)
[2019-12-12] MEDS ORDERED: PROMETHAZINE 25 MG/1 ML VIAL IM PRN (21:00)
[2019-12-13] MEDS: MORPHINE 4 MG/1 ML VIAL IV PRN ×4 (04:20→20:12)
[2019-12-13] MEDS: SODIUM CHLORIDE 0.9% 250 ML IV SCH ×2 (04:22→20:17)
[2019-12-13] MEDS ORDERED: SODIUM HYPOCHLORITE 0.25% IRR 1 APPLIC in IV BAG 1 EACH IRRIG PRN (08:48)
[2019-12-13] MEDS ORDERED: GABAPENTIN 300 MG CAPSULE PO PRN (09:19)
[2019-12-13] MEDS ORDERED: DEXTROSE 50% 25 GM/50 ML VIAL IV PRN (10:29)
[2019-12-13] MEDS ORDERED: GLUCAGON 1 MG VIAL IM PRN (10:29)
[2019-12-13] MEDS: CALCIUM ACETATE 667 MG CAPSULE PO SCH ×2 (11:50→20:06)
[2019-12-13] MEDS: INSULIN GLARGINE 100 UNIT/ML SUBCUT SCH (20:07)
[2019-12-13] MEDS: MULTIVITAMIN (BEROCCA) TABLET PO SCH (20:07)
[2019-12-13] MEDS: ISOSORBIDE DINITRATE 20 MG TABLET PO SCH (20:07)
[2019-12-13] MEDS: carvediloL 12.5 MG TABLET PO SCH (20:07)
[2019-12-13] MEDS: GABAPENTIN 100 MG CAPSULE PO SCH (20:07)
[2019-12-13] MEDS: ATORVASTATIN 40 MG TABLET PO SCH (20:07)
[2019-12-13] MEDS: NYSTATIN CREAM 15 GM TUBE TOP SCH (20:15)
[2019-12-14] MEDS: MORPHINE 4 MG/1 ML VIAL IV PRN ×4 (01:17→21:46)
[2019-12-14] MEDS: SODIUM CHLORIDE 0.9% 250 ML IV SCH ×2 (02:21→17:43)
[2019-12-14] MEDS: traMADol 50 MG TABLET PO PRN ×2 (02:21→14:16)
[2019-12-14] MEDS: ISOSORBIDE DINITRATE 20 MG TABLET PO SCH ×2 (09:37→21:46)
[2019-12-14] MEDS: ASPIRIN EC 81 MG TABLET PO SCH (09:37)
[2019-12-14] MEDS: lisinopriL 5 MG TABLET PO SCH (09:37)
[2019-12-14] MEDS: CALCIUM ACETATE 667 MG CAPSULE PO SCH ×3 (09:37→17:43)
[2019-12-14] MEDS: carvediloL 12.5 MG TABLET PO SCH ×2 (09:38→17:43)
[2019-12-14] MEDS ORDERED: VANCOMYCIN INJ 1,000 MG in SODIUM CHLORIDE 0.9% 250 ML IV PRN (12:08)
[2019-12-14] MEDS ORDERED: VANCOMYCIN INJ 750 MG in SODIUM CHLORIDE 0.9% 250 ML IV PRN (12:19)
[2019-12-14] MEDS ORDERED: VANCOMYCIN INJ 1,750 MG in SODIUM CHLORIDE 0.9% 500 ML IV ONE (13:00)
[2019-12-14] MEDS: NYSTATIN CREAM 15 GM TUBE TOP SCH ×2 (14:01→21:57)
[2019-12-14] MEDS: INSULIN GLARGINE 100 UNIT/ML SUBCUT SCH (17:42)
[2019-12-14] MEDS: MULTIVITAMIN (BEROCCA) TABLET PO SCH (18:12)
[2019-12-14] MEDS: GABAPENTIN 100 MG CAPSULE PO SCH (21:46)
[2019-12-14] MEDS: ATORVASTATIN 40 MG TABLET PO SCH (21:46)
[2019-12-15] MEDS: MORPHINE 4 MG/1 ML VIAL IV PRN ×5 (01:14→23:40)
[2019-12-15] MEDS: SODIUM CHLORIDE 0.9% 250 ML IV SCH (08:14)
[2019-12-15] MEDS: ASPIRIN EC 81 MG TABLET PO SCH (08:54)
[2019-12-15] MEDS: carvediloL 12.5 MG TABLET PO SCH ×2 (08:54→16:41)
[2019-12-15] MEDS: lisinopriL 5 MG TABLET PO SCH (08:54)
[2019-12-15] MEDS: ISOSORBIDE DINITRATE 20 MG TABLET PO SCH ×2 (08:54→21:18)
[2019-12-15] MEDS: CALCIUM ACETATE 667 MG CAPSULE PO SCH ×3 (08:54→16:41)
[2019-12-15] MEDS: NYSTATIN CREAM 15 GM TUBE TOP SCH ×2 (09:31→21:18)
[2019-12-15] MEDS: INSULIN GLARGINE 100 UNIT/ML SUBCUT SCH (16:37)
[2019-12-15] MEDS ORDERED: VANCOMYCIN INJ 750 MG in SODIUM CHLORIDE 0.9% 250 ML IV ONE (18:00)
[2019-12-15] MEDS: MULTIVITAMIN (BEROCCA) TABLET PO SCH (21:18)
[2019-12-15] MEDS: GABAPENTIN 100 MG CAPSULE PO SCH (21:18)
[2019-12-15] MEDS: ATORVASTATIN 40 MG TABLET PO SCH (21:18)
[2019-12-16] MEDS: MORPHINE 4 MG/1 ML VIAL IV PRN ×6 (03:52→22:07)
[2019-12-16] MEDS: ASPIRIN EC 81 MG TABLET PO SCH (09:50)
[2019-12-16] MEDS: lisinopriL 5 MG TABLET PO SCH (09:50)
[2019-12-16] MEDS: CALCIUM ACETATE 667 MG CAPSULE PO SCH ×3 (09:50→16:38)
[2019-12-16] MEDS: ISOSORBIDE DINITRATE 20 MG TABLET PO SCH ×2 (09:50→20:48)
[2019-12-16] MEDS: carvediloL 12.5 MG TABLET PO SCH ×2 (09:50→16:38)
[2019-12-16] MEDS: NYSTATIN CREAM 15 GM TUBE TOP SCH ×2 (10:11→21:59)
[2019-12-16] MEDS ORDERED: INSULIN REGULAR 100 UNIT/ML SUBCUT SCH (16:30)
[2019-12-16] MEDS: INSULIN REGULAR 100 UNIT/ML SUBCUT SCH ×2 (16:37→20:50)
[2019-12-16] MEDS: INSULIN GLARGINE 100 UNIT/ML SUBCUT SCH (16:37)
[2019-12-16] MEDS: MULTIVITAMIN (BEROCCA) TABLET PO SCH (19:40)
[2019-12-16] MEDS: ATORVASTATIN 40 MG TABLET PO SCH (20:48)
[2019-12-16] MEDS: GABAPENTIN 100 MG CAPSULE PO SCH (20:48)
[2019-12-17] MEDS: MORPHINE 4 MG/1 ML VIAL IV PRN ×6 (01:47→21:29)
[2019-12-17] MEDS: INSULIN REGULAR 100 UNIT/ML SUBCUT SCH ×4 (07:55→21:21)
[2019-12-17] MEDS: ISOSORBIDE DINITRATE 20 MG TABLET PO SCH ×2 (08:32→21:22)
[2019-12-17] MEDS: lisinopriL 5 MG TABLET PO SCH (08:32)
[2019-12-17] MEDS: ASPIRIN EC 81 MG TABLET PO SCH (08:32)
[2019-12-17] MEDS: carvediloL 12.5 MG TABLET PO SCH ×2 (08:32→18:09)
[2019-12-17] MEDS: CALCIUM ACETATE 667 MG CAPSULE PO SCH ×3 (08:32→18:09)
[2019-12-17] MEDS: NYSTATIN CREAM 15 GM TUBE TOP SCH ×2 (10:18→21:22)
[2019-12-17] MEDS: MULTIVITAMIN (BEROCCA) TABLET PO SCH (18:09)
[2019-12-17] MEDS: INSULIN GLARGINE 100 UNIT/ML SUBCUT SCH (18:09)
[2019-12-17] MEDS: GABAPENTIN 100 MG CAPSULE PO SCH (21:22)
[2019-12-17] MEDS: ATORVASTATIN 40 MG TABLET PO SCH (21:22)
[2019-12-18] MEDS: MORPHINE 4 MG/1 ML VIAL IV PRN ×4 (00:10→21:40)
[2019-12-18] MEDS: INSULIN REGULAR 100 UNIT/ML SUBCUT SCH ×2 (08:31→12:09)
[2019-12-18] MEDS: ISOSORBIDE DINITRATE 20 MG TABLET PO SCH ×2 (08:33→21:35)
[2019-12-18] MEDS: carvediloL 12.5 MG TABLET PO SCH ×2 (08:33→16:00)
[2019-12-18] MEDS: lisinopriL 5 MG TABLET PO SCH (08:33)
[2019-12-18] MEDS: ASPIRIN EC 81 MG TABLET PO SCH (08:33)
[2019-12-18] MEDS: CALCIUM ACETATE 667 MG CAPSULE PO SCH ×3 (08:33→16:00)
[2019-12-18] MEDS: NYSTATIN CREAM 15 GM TUBE TOP SCH ×2 (08:34→21:36)
[2019-12-18] MEDS: INSULIN GLARGINE 100 UNIT/ML SUBCUT SCH (16:00)
[2019-12-18] MEDS ORDERED: VANCOMYCIN INJ 750 MG in SODIUM CHLORIDE 0.9% 250 ML IV ONE (17:00)
[2019-12-18] MEDS: MULTIVITAMIN (BEROCCA) TABLET PO SCH (18:03)
[2019-12-18] MEDS: ATORVASTATIN 40 MG TABLET PO SCH (21:35)
[2019-12-18] MEDS: GABAPENTIN 100 MG CAPSULE PO SCH (21:35)
[2019-12-19] MEDS: MORPHINE 4 MG/1 ML VIAL IV PRN ×6 (00:09→20:43)
[2019-12-19] MEDS: lisinopriL 5 MG TABLET PO SCH (08:16)
[2019-12-19] MEDS: CALCIUM ACETATE 667 MG CAPSULE PO SCH ×3 (08:16→17:52)
[2019-12-19] MEDS: ASPIRIN EC 81 MG TABLET PO SCH (08:16)
[2019-12-19] MEDS: ISOSORBIDE DINITRATE 20 MG TABLET PO SCH ×2 (08:16→20:36)
[2019-12-19] MEDS: carvediloL 12.5 MG TABLET PO SCH ×2 (08:16→17:53)
[2019-12-19] MEDS: NYSTATIN CREAM 15 GM TUBE TOP SCH ×2 (08:18→20:38)
[2019-12-19] MEDS: INSULIN GLARGINE 100 UNIT/ML SUBCUT SCH (17:53)
[2019-12-19] MEDS: MULTIVITAMIN (BEROCCA) TABLET PO SCH (18:11)
[2019-12-19] MEDS: ATORVASTATIN 40 MG TABLET PO SCH (20:36)
[2019-12-19] MEDS: GABAPENTIN 100 MG CAPSULE PO SCH (20:36)
[2019-12-20] MEDS: MORPHINE 4 MG/1 ML VIAL IV PRN (02:16)
[2019-12-20] MEDS: CALCIUM ACETATE 667 MG CAPSULE PO SCH ×3 (09:12→17:25)
[2019-12-20] MEDS: ISOSORBIDE DINITRATE 20 MG TABLET PO SCH (09:12)
[2019-12-20] MEDS: ASPIRIN EC 81 MG TABLET PO SCH (09:13)
[2019-12-20] MEDS: lisinopriL 5 MG TABLET PO SCH (09:13)
[2019-12-20] MEDS: traMADol 50 MG TABLET PO PRN ×2 (09:13→14:33)
[2019-12-20] MEDS: NYSTATIN CREAM 15 GM TUBE TOP SCH (09:14)
[2019-12-20] MEDS: carvediloL 12.5 MG TABLET PO SCH ×2 (09:14→17:25)
[2019-12-20] MEDS ORDERED: VANCOMYCIN INJ 750 MG in SODIUM CHLORIDE 0.9% 250 ML IV ONE (17:00)
[2019-12-20] MEDS: INSULIN GLARGINE 100 UNIT/ML SUBCUT SCH (17:25)
[2019-12-20 17:37] VITALS: BP 143/91
== END 2019-12-20 17:30 | disposition home or self-care (01) | DRG 463 ==
LOC: N.OR 10:47 → N.SDSINP 10:49 → N.5E 16:24
PROVIDERS: ADMIT Surgery; ATTEND Surgery